=== PATIENT | female | born 1945 | race Caucasian/White ===

== ENCOUNTER 2025-07-01 19:20 | Inpatient (IN) ==
--- NOTE | 2025-07-01 19:36 | Emergency Department Note ---
Impression & Plan Chest pain, CAD (coronary artery disease) ED Provider Note NAME: MATHEW CORDERO AGE: 79 SEX: F : 1945 ARRIVES VIA: Walk-In INFORMANT: Patient ED PROVIDER(S): Antonio Riojas DO CHIEF COMPLAINT: chest pain HPI: Patient is an 79-year-old female with a past medical history of CVA, CAD, hypertension, hyperlipidemia, A-fib, CHF, aortic valve replacement and mitral valve replacement as well as tricuspid valve replacement and CABG who presents to the ER for chest pain which started around 12-1 and lasted for about an hour. Relieved with nitro. Had some shortness of breath with it. No arm or jaw pain. No belly pain. No nausea, vomiting or diarrhea. No dysuria, urgency or frequency. ADDITIONAL HISTORY OBTAINED: Per HPI Chronic Medical/Social Conditions Affecting Care: Per HPI PAST MEDICAL HISTORY:See Below PAST SURGICAL HISTORY:See Below FAMILY HISTORY:See Below SOCIAL HISTORY:See Below HOME MEDICATIONS:See Below ALLERGIES:See Below VITALS:See Below PHYSICAL EXAMINATION: GENERAL: Sitting up in bed, alert, well appearing, well nourished, no distress, non-toxic EYE EXAM: normal conjunctiva. OROPHARYNX: mucous membranes are moist LUNGS: Clear to auscultation. Normal chest wall mechanics HEART: no murmurs, S1 normal and S2 normal ABDOMEN: abdomen soft, non-tender, normo-active bowel sounds, no masses, no rebound or guarding. UPPER EXTREMITIES: upper extremities are grossly normal. LOWER EXTREMITIES: No pitting edema. NEURO EXAM: Normal sensorium, cranial nerves II-XII grossly intact, normal speech, no gross weakness of arms, no gross weakness of legs. MEDICAL DECISION MAKING: Patient is a 79-year-old female who presents ER for the above-stated complaint. IV was established and blood work was obtained. She has extensive past medical history including CVA, CAD, tricuspid, mitral and aortic valve replacements as well as CABG hypertension hyperlipidemia and heart failure for chest pain. Chest pain was relieved with nitro. Labs showed no significant leukocytosis or anemia. BMP with creatinine 1.4. LFTs and troponin was negative. Lipase normal. Chest x-ray with a significantly enlarged heart. Patient was given aspirin. Pain-free while in the ER and discussed case with the hospitalist for further evaluation management treatment due to high risk per heart score. Consults/Care Managements Discussions: Per [facility] Triage Nursing notes reviewed. Limited review of prior medical records performed Vital Signs: reviewed and remarkable for HTN Differential diagnosis: Cardiac ischemia, aortic dissection, pulmonary embolism, pneumothorax, pneumonia, pericarditis, myocarditis, esophageal rupture, GERD, cholecystitis, pancreatitis, musculoskeletal, as well as other pathologies. ER treatment provided: See below Diagnostics interpreted by me include EKG and cardiac monitoring as listed below: -Cardiac Monitoring: An order was placed for continuous cardiac monitoring. The monitor shows a rate of 80 with sinus rhythm. -ECG: Sinus rhythm rate of 79 Normal axis No PVCs QTc 474 -Laboratory studies:Interpreted by me as stated above in MDM and shown below. Imaging studies: Xrays: As interpreted by me: Portable AP upright 1 view of the chest shows large cardiac silhouette CTs show: none Procedures:none Critical Care: None Past Med/Surg History Problem List Chest pain (Acute) CVA (cerebral vascular accident) (Chronic) CAD (coronary artery disease) (Chronic) "hx CABG x3 cath 2011 - ZHANG to LAD and radial to LCX occluded with normal [place] flow to LAD, moderate LCX disease, patent TONYA to RCA stress echo 10/2013 - negative for ischemia" Hypothyroidism (Chronic) Dyslipidemia (Chronic) HTN (hypertension) (Chronic) CKD (chronic kidney disease), stage III (Chronic) Atrial fibrillation (Chronic) "on coumadin" Pulmonary HTN (Chronic) KAROLINE (acute kidney injury) (Acute) Right-sided heart failure (Chronic) CHF exacerbation Impaired glucose tolerance (Chronic) History of hysterectomy (Chronic) Hx of cholecystectomy (Chronic) H/O aortic valve replacement (Chronic) "December 2002 in [place]; redo 09/26/2016 [place] [facility] with bioprosthetic valve" History of mitral valve replacement (Chronic) "December 2002 in [place]; redo 09/26/2016 at [facility] [place] with bioprosthetic valve" H/O tricuspid valve repair (Chronic) "09/26/2016" S/P CABG (coronary artery bypass graft) (Chronic) "CABG x 3 in December 2002 [facility]; CABG x 2 on 09/26/2016 at [facility] [place]" Social History Smoking Status: Never smoker Preferred Language: Estonian Feels Safe at Home: Yes Allergies Allergies Allergy/AdvReac Type Severity Reaction Status Date / Time rofecoxib Allergy Severe EDEMA Verified 07/01/25 20:19 AIRWAY spironolactone Allergy Intermediate Rash Verified 07/01/25 20:19 heparin AdvReac Severe BLEEDING----affected Verified 07/01/25 20:19 platelets estrogens, conjugated AdvReac Intermediate CYSTS-LUMPS Verified 07/01/25 20:19 Home Meds Home Medications Medication Instructions Recorded Confirmed allopurinol 100 mg tablet 100 mg PO QAM 07/01/25 07/01/25 aspirin 81 mg tablet,delayed 162 mg PO DAILY 07/01/25 07/01/25 release atorvastatin 80 mg tablet 80 mg PO QAM 07/01/25 07/01/25 eplerenone 25 mg tablet (Inspra) 25 mg PO DAILY 07/01/25 07/01/25 ezetimibe 10 mg tablet (Zetia) 10 mg PO DAILY 07/01/25 07/01/25 famotidine 20 mg tablet 20 mg PO HS 07/01/25 07/01/25 isosorbide mononitrate 30 mg 30 mg PO QAM 07/01/25 07/01/25 tablet,extended release 24 hr levothyroxine 125 mcg tablet 125 mcg PO DAILYBB 07/01/25 07/01/25 meclizine 12.5 mg tablet 12.5 mg PO TID PRN Dizziness 07/01/25 07/01/25 metoprolol succinate 25 mg 12.5 mg PO DAILY 07/01/25 07/01/25 tablet,extended release 24 hr nitroglycerin 0.4 mg sublingual 0.4 mg sublingual DIRECTED PRN 07/01/25 07/01/25 tablet Chest Pain polyethylene glycol 3350 17 17 g PO DAILY 07/01/25 07/01/25 gram/dose oral powder (Miralax) potassium chloride 10 mEq 10 meq PO DAILY 07/01/25 07/01/25 tablet,extended release potassium chloride 10 mEq 10 meq PO Q OTHER DAY 07/01/25 07/01/25 tablet,extended release torsemide 100 mg tablet 50 mg PO BID 07/01/25 07/01/25 warfarin 5 mg tablet 2.5 - 5 mg PO QPM 07/01/25 07/01/25 Results & Data (ED) Vital Signs Vital Signs - 24 hr 07/01/25 19:23 07/01/25 19:43 07/01/25 19:53 Temperature 36.5 C Temperature Source Oral Pulse Rate 77 78 76 Pulse Rate from SpO2 Sensor Respiratory Rate 16 19 Respiratory Effort / Characteristics Non-Labored Respiratory Depth Normal Blood Pressure 188/75 H Blood Pressure Mean 112 Pulse Oximetry 94 93 Oxygen Delivery Method Room Air Room Air Sepsis Recent Fever Within 48 Hours No Sepsis New/Unexplained Change in Mental Status No Sepsis Action Taken by Nursing No Action Required 07/01/25 19:56 07/01/25 20:00 07/01/25 20:17 Temperature Temperature Source Pulse Rate 65 84 Pulse Rate from SpO2 Sensor 64 80 Respiratory Rate 24 20 Respiratory Effort / Characteristics Respiratory Depth Blood Pressure 135/75 Blood Pressure Mean 102 Pulse Oximetry 94 93 Oxygen Delivery Method Sepsis Recent Fever Within 48 Hours Sepsis New/Unexplained Change in Mental Status Sepsis Action Taken by Nursing 07/01/25 20:30 07/01/25 20:30 07/01/25 20:30 Temperature Temperature Source Pulse Rate Pulse Rate from SpO2 Sensor Respiratory Rate Respiratory Effort / Characteristics Respiratory Depth Blood Pressure 139/67 139/67 139/67 Blood Pressure Mean 100 100 100 Pulse Oximetry Oxygen Delivery Method Sepsis Recent Fever Within 48 Hours Sepsis New/Unexplained Change in Mental Status Sepsis Action Taken by Nursing 07/01/25 20:32 Temperature Temperature Source Pulse Rate 66 Pulse Rate from SpO2 Sensor 66 Respiratory Rate 24 Respiratory Effort / Characteristics Respiratory Depth Blood Pressure Blood Pressure Mean Pulse Oximetry 94 Oxygen Delivery Method Sepsis Recent Fever Within 48 Hours Sepsis New/Unexplained Change in Mental Status Sepsis Action Taken by Nursing Laboratory Data 07/01/25 19:38 07/01/25 19:38 Lab Results 07/01/25 Range/Units 19:38 WBC 5.61 (4.8-10.8) K/ul RBC 4.12 L (4.20-5.40) M/uL Hgb 13.1 (12.0-16.0) g/dl Hct 38.2 (37.0-47.0) % MCV 92.7 (80.0-100.0) fL MCH 31.8 (25.0-34.0) pg MCHC 34.3 (32.0-36.0) g/dL RDW Std Deviation 50.7 H (36.4-46.3) fL RDW Coeff of Teddy 14.8 H (11.5-14.5) % Plt Count 181 (130-400) K/uL MPV 11.0 (9.4-12.4) fL Immature Gran % (Auto) 0.4 % Neut % (Auto) 59.5 % Lymph % (Auto) 23.7 % [place] % (Auto) 11.1 % Eos % (Auto) 3.9 % Baso % (Auto) 1.4 % Neut # (Auto) 3.34 (1.40-6.50) K/uL Lymph # (Auto) 1.33 (1.20-3.40) K/uL [place] # (Auto) 0.62 H (0.11-0.59) K/uL Eos # (Auto) 0.22 (0.00-0.50) K/uL Baso # (Auto) 0.08 (0.00-0.20) K/uL Immature Gran # (Auto) 0.02 (0.01-0.20) K/uL Sodium 139 (136-145) mmol/L Potassium 3.8 (3.5-5.1) mmol/L Chloride 102 (98-107) mmol/L Carbon Dioxide 29 (21-32) mmol/L Anion Gap 8 (3-11) BUN 32 H (6-23) mg/dl Creatinine 1.48 H (0.6-1.2) mg/dl Est Cr Clr Drug Dosing 30.0 ml/min eGFR 35.36 BUN/Creatinine Ratio 21.6 H (10-20) Glucose 128 H (70-99(Fasting)) mg/dl Calcium 8.9 (8.6-10.3) mg/dl Total Bilirubin 1.9 H (0.2-1.0) mg/dl AST 26 (13-39) U/L ALT 20 (7-52) U/L Alkaline Phosphatase 124 H (34-104) U/L Troponin I High Sens 11.1 (0-14) pg/ml Total Protein 7.0 (6.0-8.3) gm/dl Albumin 3.8 (3.4-5.0) gm/dl Globulin 3.2 (2.5-4.0) gm/dl Albumin/Globulin Ratio 1.2 (0.9-2) Lipase 40 (11-82) U/L Administered Medications Discontinued Medications Aspirin (Aspirin Chew 324 Mg) 324 mg PO NOW STA Stop: 07/01/25 19:37 Last Admin: 07/01/25 19:41 Dose: 324 mg Documented By: MADDY Discharge Plan Visit Data Chief Complaint: Chest Pain Stated Complaint: CHEST PAIN ED Provider: Antonio Riojas Discharge Problem: Chest pain, CAD (coronary artery disease) Condition: Fair Forms Stand Alone Forms: [facility] [employer] Prescriptions Prescriptions: No Action atorvastatin 80 mg tablet 80 mg PO QAM isosorbide mononitrate 30 mg tablet extended release 24 hr 30 mg PO QAM meclizine 12.5 mg Tablet 12.5 mg PO TID PRN (Reason: Dizziness) potassium chloride 10 mEq tablet extended release 10 meq PO DAILY potassium chloride 10 mEq tablet extended release 10 meq PO Q OTHER DAY Rx Instructions: TAKE EVERY OTHER DAY AT LUNCH TIME IN ADDITION TO QAM DOSE. allopurinol 100 mg tablet 100 mg PO QAM aspirin 81 mg Tablet,Delayed Release (Dr/Ec) 162 mg PO DAILY famotidine 20 mg Tablet 20 mg PO HS torsemide 100 mg Tablet 50 mg PO BID Rx Instructions: BREAKFAST & LUNCH levothyroxine 125 mcg Tablet 125 mcg PO DAILYBB warfarin 5 mg tablet 2.5 - 5 mg PO QPM Rx Instructions: TAKE DIRECTED nitroglycerin 0.4 mg tablet, sublingual 0.4 mg sublingual DIRECTED PRN (Reason: Chest Pain) metoprolol succinate 25 mg Tablet Extended Release 24 Hr 12.5 mg PO DAILY polyethylene glycol 3350 [Miralax] 17 gram/dose Powder 17 g PO DAILY eplerenone [Inspra] 25 mg Tablet 25 mg PO DAILY ezetimibe [Zetia] 10 mg Tablet 10 mg PO DAILY Referrals Referrals: Jennifer Castle MD [Outside Practitioners] - Discharge Problem: Chest pain Qualifiers: Chest pain type: unspecified Qualified Code(s): R07.9 - Chest pain, unspecified CAD (coronary artery disease) Qualifiers: Coronary Disease-Associated Artery/Lesion type: unspecified vessel or lesion type [place] vs. transplanted heart: [place] heart Associated angina: unspecified whether angina present Qualified Code(s): I25.10 - Atherosclerotic heart disease of [place] coronary artery without angina pectoris
[2025-07-01] MEDS: ASPIRIN CHEW 324 MG PO STA (19:41)
[2025-07-01 19:53] LABS: Hematocrit (blood only) 38.2 % (37.0-47.0); Hemoglobin 13.1 g/dl (12.0-16.0); Immature Granulocytes # (auto) 0.02 K/uL (0.01-0.20); Immature Granulocytes % (auto) 0.4 %; Mean Corpuscular Hemoglobin 31.8 pg (25.0-34.0); Mean Corpuscular Volume 92.7 fL (80.0-100.0); Platelet Count 181 K/uL (130-400); RDW Standard Deviation 50.7 fL (36.4-46.3); Red Blood Count 4.12 M/uL (4.20-5.40); White Blood Count 5.61 K/ul (4.8-10.8)
[2025-07-01 20:13] LABS: Alanine Aminotransferase 20.0 U/L (7-52); Albumin Globulin Ratio 1.2 (0.9-2); Alkaline Phosphatase 124.0 U/L (34-104); Anion Gap 8.0 (3-11); Bilirubin,Total 1.9 mg/dl (0.2-1.0); Blood Urea Nitrogen 32.0 mg/dl (6-23); Calcium 8.9 mg/dl (8.6-10.3); Carbon Dioxide 29.0 mmol/L (21-32); Chloride 102.0 mmol/L (98-107); Creatinine Clr Calc Pharmacy 30.0 ml/min; Globulin 3.2 gm/dl (2.5-4.0); Glucose 128.0 mg/dl (70-99(Fasting)); Lipase 40.0 U/L (11-82); Potassium 3.8 mmol/L (3.5-5.1); Sodium 139.0 mmol/L (136-145); Total Protein 7.0 gm/dl (6.0-8.3)
--- NOTE | 2025-07-01 21:48 | History & Physical Report ---
Date of Service July 01, 2025 Assessment & Plan (1) Chest pain: Plan: Assessment and plan below following discussion of case with ED provider and reviewing patient history/pertinent normal/abnormal diagnostic test results. Chest pain Possibly from uncontrolled hypertension Rule out ACS given history CAD status post CABG and relief with nitroglycerin Patient discomfort with musculoskeletal component given reproducibility on exam. ARF on CKD chronic diastolic heart failure (EF 50 to 54%, TTE 2023), equivocal volume status hx CAD status post CABG/CVA/PVD A-fib/atrial flutter on Coumadin, INR therapeutic hx rheumatic heart disease status post surgery (history bioprosthetic AVR, redo bioprosthetic MVR, tricuspid valve repair) moderate TR pulmonary hypertension hyperlipidemia on ezetimibe DM2 diet-controlled, well-controlled as of hemoglobin A1c of 6.8 from last year hypothyroidism, outpatient TSH elevated at 4.6 from October 2024 OBS Admit to PCU Low-dose amlodipine if home beta-andreas cannot be titrated up due to bradycardia Follow troponin Cardiology consult re: chest pain Baseline UA, monitor creatinine response to gentle IV hydration Hold home diuretic until creatinine back to baseline ISS BG goal 110-140, carb count coverage, update hemoglobin A1c Update TSH given episodic bradycardia DVT prophylaxis. Coumadin INR goal between 2 and 3 if no intervention from cardiology standpoint Full code Patient requesting updates from providers. Mr. Elie Vann, contact numbers [phone]. Text document was generated using [employer] voice recognition software. It may contain grammatical or spelling errors. Kindly contact undersigned for clarification of any documentation item in question. History of Present Illness Chief Complaint: Chest pain Primary Care Provider: Leigh Simmons DO History obtained from patient, family, and records. Medical history significant for chronic diastolic heart failure (EF 50 to 54%, TTE 2024), CAD status post CABG, A-fib/atrial flutter on Coumadin, rheumatic heart disease (history bioprosthetic AVR, redo bioprosthetic MVR, tricuspid valve repair), moderate TR, pulmonary hypertension, hyperlipidemia, CVA, PVD, DM2 diet-controlled, hypothyroidism, CRI (baseline creatinine 1.2-1.3), GERD, Gilbert syndrome as per records. Last confinement 2015 for decompensated heart failure. Patient seen at [facility] cardiology office last month for follow-up visit. Intermittent chest discomfort going to the back relieved by nitroglycerin. Hypertension and atypical chest discomfort as per provider note. Stress testing referral offered and declined by patient. Imdur trial recommended. Patient had recurrent substernal pain going to the back today associated with shortness of breath, diaphoresis. No cough symptoms. Different from reflux. Episode more intense than last month. Patient unaware of blood pressure control at home. Patient compliant with home medications. Patient busy with some rearranging at home although not doing any heavy lifting as per son. Symptoms improved with nitroglycerin intake at home. Patient denies headache symptoms. Patient denies unusual fluid retention. Patient directed to ER by outpatient cardiology provider. Patient currently comfortable. Highest SBP of 180s documented at the ER. Medical History as above Surgical History : Breast biopsy/breast lesion excision, CABG, cholecystectomy, cataract surgeries, bioprosthetic MVR/AVR, MAURY, tricuspid repair Family History : Heart disease, pancreatic cancer Personal/Social history : Non-smoker, no EtOH intake, homemaker in her younger years Allergies Allergy/AdvReac Type Severity Reaction Status Date / Time rofecoxib Allergy Severe EDEMA Verified 07/01/25 20:19 AIRWAY spironolactone Allergy Intermediate Rash Verified 07/01/25 20:19 heparin AdvReac Severe BLEEDING----affected Verified 07/01/25 20:19 platelets estrogens, conjugated AdvReac Intermediate CYSTS-LUMPS Verified 07/01/25 20:19 Home Medications Medication Instructions Recorded Confirmed Type allopurinol 100 mg tablet 100 mg PO QAM 07/01/25 07/01/25 History aspirin 81 mg tablet,delayed 162 mg PO DAILY 07/01/25 07/01/25 History release atorvastatin 80 mg tablet 80 mg PO QAM 07/01/25 07/01/25 History eplerenone 25 mg tablet (Inspra) 25 mg PO DAILY 07/01/25 07/01/25 History ezetimibe 10 mg tablet (Zetia) 10 mg PO DAILY 07/01/25 07/01/25 History famotidine 20 mg tablet 20 mg PO HS 07/01/25 07/01/25 History isosorbide mononitrate 30 mg 30 mg PO QA 07/01/25 07/01/25 History tablet,extended release 24 hr levothyroxine 125 mcg tablet 125 mcg PO DAILYBB 07/01/25 07/01/25 History meclizine 12.5 mg tablet 12.5 mg PO TID PRN Dizziness 07/01/25 07/01/25 History metoprolol succinate 25 mg 12.5 mg PO DAILY 07/01/25 07/01/25 History tablet,extended release 24 hr nitroglycerin 0.4 mg sublingual 0.4 mg sublingual DIRECTED PRN 07/01/25 07/01/25 History tablet Chest Pain polyethylene glycol 3350 17 17 g PO DAILY 07/01/25 07/01/25 History gram/dose oral powder (Miralax) potassium chloride 10 mEq 10 meq PO DAILY 07/01/25 07/01/25 History tablet,extended release potassium chloride 10 mEq 10 meq PO Q OTHER DAY 07/01/25 07/01/25 History tablet,extended release torsemide 100 mg tablet 50 mg PO BID 07/01/25 07/01/25 History warfarin 5 mg tablet 2.5 - 5 mg PO QPM 07/01/25 07/01/25 History Past Med/Surg History Problem List Chest pain (Acute) CVA (cerebral vascular accident) (Chronic) CAD (coronary artery disease) (Chronic) "hx CABG x3 cath 2011 - ZHANG to LAD and radial to LCX occluded with normal [place] flow to LAD, moderate LCX disease, patent TONYA to RCA stress echo 10/2013 - negative for ischemia" Hypothyroidism (Chronic) Dyslipidemia (Chronic) HTN (hypertension) (Chronic) CKD (chronic kidney disease), stage III (Chronic) Atrial fibrillation (Chronic) "on coumadin" Pulmonary HTN (Chronic) KAROLINE (acute kidney injury) (Acute) Right-sided heart failure (Chronic) CHF exacerbation Impaired glucose tolerance (Chronic) History of hysterectomy (Chronic) Hx of cholecystectomy (Chronic) H/O aortic valve replacement (Chronic) "December 2002 in [place]; redo 09/26/2016 at [facility] [place] with bioprosthetic valve" History of mitral valve replacement (Chronic) "December 2002 in [place]; redo 09/26/2016 at [facility] [place] with bioprosthetic valve" H/O tricuspid valve repair (Chronic) "09/26/2016" S/P CABG (coronary artery bypass graft) (Chronic) "CABG x 3 in December 2002 [facility]; CABG x 2 on 09/26/2016 at [facility] [place]" Social History Smoking Status: Never smoker Hx Alcohol Use: No Hx Substance Use: No Preferred Language: Iranian Communication Ability: Effective Volcanology Teacher Required: No Beliefs That Will Affect Care: None Current Living Situation: Spouse Other Information That Helps Us Care for You: No Feels Safe at Home: Yes Safety Concerns: Feels Safe At This Time Assistive Devices: Denture - Upper and Glasses Review of Systems Review of Systems: As per HPI, all other systems reviewed and negative Physical Exam Physical Exam: GENERAL: Comfortable, pleasant, no respiratory distress SKIN: Normal color, warm HEENT: [place] palpebral conjunctivae, no ptosis, dry buccal mucosa NECK : Supple, no tenderness CHEST : Healed sternal scar, CTA, anterior chest wall tenderness HEART : RRR, systolic murmur ABDOMEN: Some distention, nontender EXTREMITIES : Minimal LE swelling without tenderness, palpable pulses, no other conspicuous deformities noted NEUROLOGIC : Coherent, no facial asymmetry, no other gross focality Results & Data Results & Data Vital Signs (Past 12 Hours) Vital Signs Temp Pulse Resp BP Pulse Ox O2 Del Method 07/01/25 20:32 66 24 94 07/01/25 20:30 139/67 07/01/25 20:30 139/67 07/01/25 20:30 139/67 07/01/25 20:17 84 20 93 07/01/25 20:00 135/75 07/01/25 19:56 65 24 94 07/01/25 19:53 76 07/01/25 19:43 78 19 93 Room Air 07/01/25 19:23 36.5 C 77 16 188/75 H 94 Room Air Laboratory Results Laboratory Results WBC 5.61 K/ul (4.8-10.8) 07/01/25 19:38 RBC 4.12 M/uL (4.20-5.40) L 07/01/25 19:38 Hgb 13.1 g/dl (12.0-16.0) 07/01/25 19:38 Hct 38.2 % (37.0-47.0) 07/01/25 19:38 MCV 92.7 fL (80.0-100.0) 07/01/25 19:38 MCH 31.8 pg (25.0-34.0) 07/01/25 19:38 MCHC 34.3 g/dL (32.0-36.0) 07/01/25 19:38 RDW Std Deviation 50.7 fL (36.4-46.3) H 07/01/25 19:38 RDW Coeff of Teddy 14.8 % (11.5-14.5) H 07/01/25 19:38 Plt Count 181 K/uL (130-400) 07/01/25 19:38 MPV 11.0 fL (9.4-12.4) 07/01/25 19:38 Immature Gran % (Auto) 0.4 % 07/01/25 19:38 Neut % (Auto) 59.5 % 07/01/25 19:38 Lymph % (Auto) 23.7 % 07/01/25 19:38 [place] % (Auto) 11.1 % 07/01/25 19:38 Eos % (Auto) 3.9 % 07/01/25 19:38 Baso % (Auto) 1.4 % 07/01/25 19:38 Neut # (Auto) 3.34 K/uL (1.40-6.50) 07/01/25 19:38 Lymph # (Auto) 1.33 K/uL (1.20-3.40) 07/01/25 19:38 [place] # (Auto) 0.62 K/uL (0.11-0.59) H 07/01/25 19:38 Eos # (Auto) 0.22 K/uL (0.00-0.50) 07/01/25 19:38 Baso # (Auto) 0.08 K/uL (0.00-0.20) 07/01/25 19:38 Immature Gran # (Auto) 0.02 K/uL (0.01-0.20) 07/01/25 19:38 Sodium 139 mmol/L (136-145) 07/01/25 19:38 Potassium 3.8 mmol/L (3.5-5.1) 07/01/25 19:38 Chloride 102 mmol/L (98-107) 07/01/25 19:38 Carbon Dioxide 29 mmol/L (21-32) 07/01/25 19:38 Anion Gap 8 (3-11) 07/01/25 19:38 BUN 32 mg/dl (6-23) H 07/01/25 19:38 Creatinine 1.48 mg/dl (0.6-1.2) H 07/01/25 19:38 Est Cr Clr Drug Dosing 30.0 ml/min 07/01/25 19:38 eGFR 35.36 07/01/25 19:38 BUN/Creatinine Ratio 21.6 (10-20) H 07/01/25 19:38 Glucose 128 mg/dl (70-99(Fasting)) H 07/01/25 19:38 Calcium 8.9 mg/dl (8.6-10.3) 07/01/25 19:38 Total Bilirubin 1.9 mg/dl (0.2-1.0) H 07/01/25 19:38 AST 26 U/L (13-39) 07/01/25 19:38 ALT 20 U/L (7-52) 07/01/25 19:38 Alkaline Phosphatase 124 U/L (34-104) H 07/01/25 19:38 Troponin I High Sens 11.1 pg/ml (0-14) 07/01/25 19:38 Total Protein 7.0 gm/dl (6.0-8.3) 07/01/25 19:38 Albumin 3.8 gm/dl (3.4-5.0) 07/01/25 19:38 Globulin 3.2 gm/dl (2.5-4.0) 07/01/25 19:38 Albumin/Globulin Ratio 1.2 (0.9-2) 07/01/25 19:38 Lipase 40 U/L (11-82) 07/01/25 19:38 Diagnostic Findings Chest x-ray as per my interpretation cardiomegaly, minimal congestion EKG as per my interpretation : Rate 70, NSR, normal axis, inferior and septal infarcts, T wave abnormalities lateral leads, PVCs multiple artifacts (1) Chest pain Chest pain type: unspecified Qualified Code(s): R07.9 - Chest pain, unspecified
[2025-07-01 21:54] LABS: Magnesium 2.3 mg/dl (1.7-2.4)
[2025-07-01] MEDS ORDERED: HYDROmorphone INJ 0.5 MG/0.5 ML SYR IV PRN (22:27)
[2025-07-01] MEDS: NITROGLYCERIN SL 0.4 MG/TAB TAB SL PRN (22:41)
--- NOTE | 2025-07-01 23:03 | XRay Report ---
Exam(s): XR CXR 1 VIEW EXAM: XR Chest, 1 View CLINICAL HISTORY: Chest pain, nonspecific. TECHNIQUE: Frontal view of the chest. COMPARISON: 10/14/2016. FINDINGS: Status post sternotomy. Heart is enlarged. Mild CHF. No focal infiltrate. No pleural effusion or pneumothorax. Bones are unchanged. IMPRESSION: Cardiomegaly. Mild CHF. Electronically signed by: Tod Tolentino M.D. 07/01/25 23:02 PM
[2025-07-01] MEDS: METOPROLOL TARTRATE 1 MG/ML VIAL IV STA (23:19)
[2025-07-02] MEDS ORDERED: GLUCAGON FOR INJ 1 MG VIAL SQ PRN (00:16)
[2025-07-02] MEDS ORDERED: CARBOHYDRATES FOR HYPOGLYCEMIA PO PRN (00:16)
[2025-07-02] MEDS ORDERED: DEXTROSE 50% 50 ML SYRINGE IV PRN (00:16)
[2025-07-02] MEDS ORDERED: GLUCOSE 10 TAB/TUBE PO PRN (00:16)
[2025-07-02] MEDS ORDERED: GLUCOSE 40% GEL 15 GM TUBE PO PRN (00:16)
[2025-07-02] MEDS: INSULIN ASPART PER UNIT CHARGE SC SCH (01:32)
[2025-07-02] MEDS: ALBUMIN 25% 12.5 GM/50 ML VIAL IV ONE (04:00)
[2025-07-02] MEDS: LEVOTHYROXINE SODIUM 125 MCG TABLET PO SCH (06:32)
[2025-07-02 07:48] LABS: Hematocrit (blood only) 35.8 % (37.0-47.0); Hemoglobin 12.0 g/dl (12.0-16.0); Immature Granulocytes # (auto) 0.02 K/uL (0.01-0.20); Immature Granulocytes % (auto) 0.4 %; Mean Corpuscular Hemoglobin 31.5 pg (25.0-34.0); Mean Corpuscular Volume 94.0 fL (80.0-100.0); Platelet Count 168 K/uL (130-400); RDW Standard Deviation 51.6 fL (36.4-46.3); Red Blood Count 3.81 M/uL (4.20-5.40); White Blood Count 5.51 K/ul (4.8-10.8)
[2025-07-02 07:59] LABS: Hemoglobin A1C 6.5 % (4.5-5.6)
[2025-07-02 07:59] LABS: Appearance Urine Clear (Clear); Bacteria Urine Automated None Seen (None Seen); Cast Urine Automated 0-2 /lpf (0-2); Epithelial Cell Urine Auto 0-2 /hpf (0-2); Glucose Urine UA Negative (Negative); RBC Urine Automated 0-2 /hpf (0-2); WBC Urine Automated 0-5 /hpf (0-5)
[2025-07-02 08:03] LABS: Anion Gap 6.0 (3-11); Blood Urea Nitrogen 30.0 mg/dl (6-23); Calcium 8.8 mg/dl (8.6-10.3); Carbon Dioxide 30.0 mmol/L (21-32); Chloride 106.0 mmol/L (98-107); Cholesterol 87.0 mg/dl (0-200); Creatinine Clr Calc Pharmacy 37.4 ml/min; Glucose 96.0 mg/dl (70-99(Fasting)); HDL Cholesterol 37.0 mg/dl; Potassium 3.5 mmol/L (3.5-5.1); Sodium 142.0 mmol/L (136-145); Triglycerides 65.0 mg/dl (0-150)
[2025-07-02 08:16] LABS: INR 2.2 (0.9-1.1); Prothrombin Time 21.9 Seconds (9.0-12.0)
[2025-07-02 08:18] LABS: Thyroid Stimulating Hormone 0.59 uIu/ml (0.300-4.500)
[2025-07-02] MEDS: POLYETHYLENE (MIRALAX) 17 GM PACK PO SCH (08:24)
[2025-07-02] MEDS: ASPIRIN 81 MG ECTAB PO SCH (08:24)
[2025-07-02] MEDS: EZETIMIBE 10 MG TAB PO SCH (08:25)
[2025-07-02] MEDS: ISOSORBIDE MONO EXTENDED REL 30 MG TABCR PO SCH (08:25)
[2025-07-02] MEDS: METOPROLOL SUCC 25MG EXT REL TAB PO SCH (08:25)
[2025-07-02] MEDS: ATORVASTATIN 40 MG TAB PO SCH (08:25)
--- NOTE | 2025-07-02 08:28 | Cardiology Consultation ---
Date of Consultation July 02, 2025 Assessment & Plan (1) Chest pain: (2) CAD (coronary artery disease): (3) Atrial fibrillation: (4) H/O aortic valve replacement: (5) History of mitral valve replacement: (6) H/O tricuspid valve repair: Plan Assessment: 79 year old medically complex female admitted for evaluation of intermittent chest pain, reproducible to palpation. given complex cardiac history, cardiology was requested for evaluation/recommenations. Plan: Chest pain CAD A-fib/flutter--chronic History of AVR with redo; MVR with redo and Tricuspid valve repair -Chest pain intermittent and likely multi-factorial. EKG with no acute changes. Troponin negative -Patient appears to have two different chest pains. 1 is reproducible to palpation, suggesting possible musculoskeletal component. the other seems to be aggrevating when eating, ? GI component, reflux, gastritis, esophageal stricture? Ongoing evaluation by primary team, consider GI referral. -EKG with no acute changes in the setting of an active event. BP elevated which is likely precipitated or aggrevated by pain. -Continue Toprol xl, ASA, Atorvastatin and Zetia as per current regimen. -may consider increase of Imdur from 30mg to 60mg daily if BP remain elevated outside of pain events. -Recent echo shows stable LVEF and appropriate function of prior valve replacements/repairs. (echo from Oct 2024--see diagnostics) -Continue to monitor on telemetry overnight. Case has been discussed with Dr. Salcido. Further recommendations regarding plan of care as per his assessment. I spent a total of 50 minutes on the date of service in preparation, delivery, documentation of the care provided to the patient excluding any time spent in the performance of separately billed services. EVIE Fagan [facility] Supervising Physician Co-Signing Physician Notes I have reviewed the advanced practitioner's documentation on the date of service referenced in note, and I agree with, and take responsibility for the plan of care. I spent a total of [30] minutes coordinating, documenting, and providing care for this patient excluding time spent in the performance of separately billed services or time spent by another provider. 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 Chronic A-fib on metoprolol and Coumadin, history of diabetes mellitus CVA chronic kidney disease presents with episodes of chest pain significant stressors at home. sudden onset of chest discomfort radiating into the back and sometimes into the abdomen can occur randomly usually at rest or after eating, nitroglycerin does help occasionally. Today after eating lunch was her most severe pain came on very intense 10 out of 10 was associated with nausea and bringing up mucus. No acute EKG changes at that time troponins have been flat Continue to trend troponins , echocardiogram to assess wall motion and ejection fraction consider CT chest to evaluate for other causes Symptoms worse with after eating will also need to have a GI evaluation Optimize anginal therapy increase Imdur. History of Present Illness Reason for Consultation: Chest pain Requesting Physician: Fuad hospitalist Attending Physician: Silverio Gibson MD History of Present Illness HPI: Patient is a 79 year old female with PMHx as outlined below that presents to the ER with acute complaints of intermittent substernal CP relieved with SL NTG. REview of notes reports that this has a musculoskeletal component given reproducibility on exam Patient follows with Zac Oakley PA-C Cardiology. last OV was 06/14/2025 in which patient endorsed 3lb weight gain and bendopnea. Patient has significant home stressors as both of her adult children and spouse are having significant health issues. She had endorsed atypical chest discomfort, hypertension. Was offered a stress test which she declined. She was started on Imdur 30mg PO QD at time of visit. Cardiac Problem list: 1. 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 s/p repeat aortic valve replacement with 21 mm Epic bioprosthetic valve, redo mitral valve replacement 31 mm Epic bioprosthetic valve, and tricuspid valve repair with 30 mm ring as well as repeat coronary bypass grafting 09/26/16. 3. CAD s/p CABG in 2003 with redo in 2016 (2002--ZHANG to LAD, Radial graft to circumflex and free TONYA to RCA) (SVG aorta to TONYA graft with a sequential graft to an RV branch) 4. Chronic A-fib/flutter-On metoprolol succinate and chronic warfarin therapy INR goal is 2.0-3.0 5. Abnormal LFTs 6. GERD 7. Gilbert's syndrome 8. HTN 9. Dyslipidemia 10. CVA 2002 11. DM Type II 12. CKD 13. Two tiny cystic lesions in the pancreatic tail measuring up to 5mm--follows with GI--planned repeat MRCP december 2026 Initial EKG accelerated Junctional rhythm, prior anterior infarct, ST depression in lateral leads. Repeat EKG today shows A-fib with PVC vs aberrantly conducted complexes. QTC 509ms Rate 65bpm Chest xray: suggest mild CHF High sensitivity troponin negative x3 Upon seeing patient today, she is resting comfortably in bed visiting with family eating lunch. Demonstrates reproducible low sternal-epigastric discomfort to palpation. Also endorses back pain. Review of telemetry shows A-fib rates 50-60's. Shortly after my visit, patient reporting chest pain while eating. VS remained stable, EKG obtained with no acute changes. No acute events on telemetry. She was given one SL NTG with no effect. Started on IV PPI, pepcid and an antacid. Allergies Allergy/AdvReac Type Severity Reaction Status Date / Time rofecoxib Allergy Severe EDEMA Verified 07/01/25 20:19 AIRWAY spironolactone Allergy Intermediate Rash Verified 07/01/25 20:19 heparin AdvReac Severe BLEEDING----affected Verified 07/01/25 20:19 platelets estrogens, conjugated AdvReac Intermediate CYSTS-LUMPS Verified 07/01/25 20:19 Home Medications Medication Instructions Recorded Confirmed Type allopurinol 100 mg tablet 100 mg PO QAM 07/01/25 07/01/25 History aspirin 81 mg tablet,delayed 162 mg PO DAILY 07/01/25 07/01/25 History release atorvastatin 80 mg tablet 80 mg PO QAM 07/01/25 07/01/25 History eplerenone 25 mg tablet (Inspra) 25 mg PO DAILY 07/01/25 07/01/25 History ezetimibe 10 mg tablet (Zetia) 10 mg PO DAILY 07/01/25 07/01/25 History famotidine 20 mg tablet 20 mg PO HS 07/01/25 07/01/25 History isosorbide mononitrate 30 mg 30 mg PO QAM 07/01/25 07/01/25 History tablet,extended release 24 hr levothyroxine 125 mcg tablet 125 mcg PO DAILYBB 07/01/25 07/01/25 History meclizine 12.5 mg tablet 12.5 mg PO TID PRN Dizziness 07/01/25 07/01/25 History metoprolol succinate 25 mg 12.5 mg PO DAILY 07/01/25 07/01/25 History tablet,extended release 24 hr nitroglycerin 0.4 mg sublingual 0.4 mg sublingual DIRECTED PRN 07/01/25 07/01/25 History tablet Chest Pain polyethylene glycol 3350 17 17 g PO DAILY 07/01/25 07/01/25 History gram/dose oral powder (Miralax) potassium chloride 10 mEq 10 meq PO DAILY 07/01/25 07/01/25 History tablet,extended release potassium chloride 10 mEq 10 meq PO Q OTHER DAY 07/01/25 07/01/25 History tablet,extended release torsemide 100 mg tablet 50 mg PO BID 07/01/25 07/01/25 History warfarin 5 mg tablet 2.5 - 5 mg PO QPM 07/01/25 07/01/25 History Patient History Social History Smoking Status: Never smoker Hx Alcohol Use: No Hx Substance Use: No Preferred Language: Yoruba Communication Ability: Effective Electrical Tech Required: No Beliefs That Will Affect Care: None Current Living Situation: Spouse Other Information That Helps Us Care for You: No Feels Safe at Home: Yes Safety Concerns: Feels Safe At This Time Assistive Devices: Denture - Upper and Glasses Review of Systems Review of Systems: All systems reviewed & are unremarkable except as noted in HPI & below Physical Exam Constitutional: + thin and + frail appearing; no acute d istress and not ill appearing Neck: normal visual inspection and trachea midline Respiratory: normal respiratory effort, lungs clear to auscultation Cardiovascular: Rate/Rhythm: regular rate and + irregularly irregular Heart Sounds: normal S1, normal S2 and + murmur (+1/6 systolic ) Vessels: dorsalis pedis pulses present; no JVD Extremities: no edema Skin: no rashes, warm and dry Psychiatric: A+Ox3, euthymic affect Results & Data Vital Signs (Past 12 Hours) Vital Signs Temp Pulse Pulse Resp BP BP Pulse Ox 07/02/25 07:32 36.8 C 60 16 151/61 H 93 07/02/25 04:34 62 07/02/25 02:35 36.8 C 53 L 16 168/68 H 94 07/02/25 00:00 36.6 C 60 20 171/74 H 92 07/01/25 23:54 68 18 150/72 H 94 07/01/25 23:19 70 142/83 H 07/01/25 22:41 36.6 C 77 20 188/98 H 93 07/01/25 22:00 186/96 H 07/01/25 22:00 186/96 H 07/01/25 22:00 68 18 95 07/01/25 21:57 69 22 94 07/01/25 21:30 171/95 H 07/01/25 21:30 67 16 95 07/01/25 21:24 65 25 H 95 07/01/25 21:18 65 17 95 07/01/25 20:51 63 16 07/01/25 20:32 66 24 94 07/01/25 20:30 139/67 07/01/25 20:30 139/67 07/01/25 20:30 139/67 O2 Del Method 07/02/25 07:32 Room Air 07/02/25 04:34 07/02/25 02:35 Room Air 07/02/25 00:00 Room Air 07/01/25 23:54 Room Air 07/01/25 23:19 07/01/25 22:41 Room Air 07/01/25 22:00 07/01/25 22:00 07/01/25 22:00 07/01/25 21:57 07/01/25 21:30 07/01/25 21:30 07/01/25 21:24 07/01/25 21:18 07/01/25 20:51 07/01/25 20:32 07/01/25 20:30 07/01/25 20:30 07/01/25 20:30 Laboratory Results Cardiac Enzymes 07/01/25 07/01/25 07/02/25 Range/Units 19:38 23:06 07:15 AST 26 (13-39) U/L Troponin I High Sens 11.1 10.3 13.6 (0-14) pg/ml Coagulation 07/02/25 Range/Units 07:15 PT 21.9 H (9.0-12.0) Seconds Lipids 07/02/25 Range/Units 07:15 Triglycerides 65 (0-150) mg/dl Cholesterol 87 (0-200) mg/dl HDL Cholesterol 37 mg/dl Cholesterol/HDL Ratio 2.4 (0-5) CBC 07/01/25 07/02/25 Range/Units 19:38 07:15 WBC 5.61 5.51 (4.8-10.8) K/ul RBC 4.12 L 3.81 L (4.20-5.40) M/uL Hgb 13.1 12.0 (12.0-16.0) g/dl Hct 38.2 35.8 L (37.0-47.0) % Plt Count 181 168 (130-400) K/uL Neut # (Auto) 3.34 3.21 (1.40-6.50) K/uL Lymph # (Auto) 1.33 1.27 (1.20-3.40) K/uL [place] # (Auto) 0.62 H 0.65 H (0.11-0.59) K/uL Eos # (Auto) 0.22 0.28 (0.00-0.50) K/uL Baso # (Auto) 0.08 0.08 (0.00-0.20) K/uL Comprehensive Metabolic Panel 07/01/25 07/02/25 Range/Units 19:38 07:15 Sodium 139 142 (136-145) mmol/L Potassium 3.8 3.5 (3.5-5.1) mmol/L Chloride 102 106 (98-107) mmol/L Carbon Dioxide 29 30 (21-32) mmol/L BUN 32 H 30 H (6-23) mg/dl Creatinine 1.48 H 1.18 D (0.6-1.2) mg/dl Glucose 128 H 96 (70-99(Fasting)) mg/dl Calcium 8.9 8.8 (8.6-10.3) mg/dl AST 26 (13-39) U/L ALT 20 (7-52) U/L Alkaline Phosphatase 124 H (34-104) U/L Total Protein 7.0 (6.0-8.3) gm/dl Albumin 3.8 (3.4-5.0) gm/dl Intake and Output 07/01/25 07/02/25 07/02/25 22:59 06:59 14:59 Intake Total 150 / 150 Balance 150 / 150 Intake: IV 50 / 50 Albumin 25% 12.5 gm In 50 ml @ 50 / 50 50 mls/hr IV ONE ONE Rx#: [id number] Oral 100 / 100 Other: Weight 80.6 kg 80 kg Weight Measurement Method Chair Scale Built in [facility] Diagnostic Findings Data: November 2022 Zio Monitor: Atrial Flutter occurred continuously (100% burden), ranging from 38-125 bpm (avg of 68 bpm). Isolated VEs were rare (<1.0%, 7324), VE Couplets were rare (<1.0%, 738), and VE Triplets were rare (<1.0%, 1). Ventricular Bigeminy and Trigeminy were present. 12 patient triggered events and 12 diary events were submitted for review. Patient triggered events correlated with atrial flutter ranging from 49 beats per minute to 106 beats p er minute. The slowest heart rate was observed on 11/28/2022 at 6:41 a.m. with average ventricular rate of 51 beats per minute that time. December 19, 2022 TTE Interpretation Summary (as per Dr. Yarbrough): The qualitative LV ejection fraction is 55-59% (normal). Severe biatrial enlargement. There is an aortic valve bioprosthetic present. The aortic valve prosthesis systolic gradients are normal for this type prosthesis. Significant aortic valve prosthesis regurgitation is absent. There is a mitral valve bioprosthesis present. Significant mitral valve prosthesis stenosis is absent. Significant mitral valve prosthesis regurgitation is absent. Mild tricuspid regurgitation is present. The estimated pulmonary artery systolic pressure is 41mm Hg. Compared to last available study changes are noted as follows: Estimated systolic pulmonary pressure has mildly increased June 2024 Zio: Atrial Flutter occurred continuously (100% burden), ranging from 37-84 bpm (avg of 61 bpm). Isolated VEs were rare (<1.0%), VE Couplets were rare (<1.0%), and no VE Triplets were present. Ventricular Bigeminy was present. November 01, 2024 TTE Interpretation Summary (as per Dr. Suazo): There was atrial fibrillation during the examination. The left ventricular cavity size is normal. The LV wall thickness is borderline increased (concentric). There is mild dyssynergy of the septal contraction pattern with otherwise normal wall motion. The qualitative LV ejection fraction is 50-54% (normal). The left atrium is severely enlarged. The right atrium is severely enlarged. There is an aortic valve bioprosthetic present. The aortic valve prosthesis systolic gradients are normal for this type prosthesis. Significant aortic valve prosthesis regurgitation is absent. There is a mitral valve bioprosthesis present. Significant mitral valve prosthesis stenosis is absent. Significant mitral valve prosthesis regurgitation is absent. There is evidence of previous tricuspid valve annuloplasty. Moderate tricuspid regurgitation is present. The estimated pulmonary artery systolic pressure is 40-45mm Hg. Compared to prior study of December 19, 2022, there is no significant change. PG Care Time/CCT Total # of Minutes Spent Total Time Spent with Patient: Total time spent is greater than 50% in coordination of care (as documented) at patient's floor/unit and/or counseling patient: [place] [address] IN/OBS CONSULT LVL 5,80M Patient Type New Diagnoses Chest pain R07.9 Chest pain type: unspecified CAD (coronary artery disease) I25.10 Associated angina: unspecified whether angina present Coronary Disease-Associated Artery/Lesion type: unspecified vessel or lesion type [place] vs. transplanted heart: [place] heart Atrial fibrillation I48.91 H/O aortic valve replacement Z95.2 History of mitral valve replacement Z95.2 H/O tricuspid valve repair Z98.890 Time Spent (min) 80 (1) Chest pain Chest pain type: unspecified Qualified Code(s): R07.9 - Chest pain, unspecified (2) CAD (coronary artery disease) Associated angina: unspecified whether angina present Coronary Disease- Associated Artery/Lesion type: unspecified vessel or lesion type [place] vs. transplanted heart: [place] heart Qualified Code(s): I25.10 - Atherosclerotic heart disease of [place] coronary artery without angina pectoris
--- NOTE | 2025-07-02 09:49 | Hospitalist Progress Note ---
Date of Service July 02, 2025 Assessment & Plan (1) Chest pain: Plan: Chest pain Possibly from uncontrolled hypertension Rule out ACS given history CAD status post CABG and relief with nitroglycerin per admitting provider - discomfort with musculoskeletal component given reproducibility on exam. ARF on CKD - resolved chronic diastolic heart failure (EF 50 to 54%, TTE 2023) hx CAD status post CABG/CVA/PVD A-fib/atrial flutter on Coumadin, INR therapeutic hx rheumatic heart disease status post surgery (history bioprosthetic AVR, redo bioprosthetic MVR, tricuspid valve repair) moderate TR pulmonary hypertension hyperlipidemia on ezetimibe Admitted to PCU Creatinine now improved at 1.18 Home diuretic held on admission -- re-check w/ cardiology when ok to resume Cardiology consulted, recommendations pending Low-dose amlodipine if home beta-andreas cannot be titrated up due to bradycardia Follow troponin Cardiology consult re: chest pain DM2 diet-controlled, well-controlled as of hemoglobin A1c of 6.8 from last year, ISS BG goal 110-140, carb count coverage, current hemoglobin A1c 6.5% Hypothyroidism, outpatient TSH elevated at 4.6 from October 2024 , current 0.59 DVT prophylaxis. Coumadin INR goal between 2 and 3 if no intervention from cardiology standpoint Full code Patient - Mr. Elie Vann, contact numbers [phone]. Admission and Anticipated Discharge Date Admission Date: July 01, 2025 Subjective Pt seen in follow up of chest pain Pt says earlier this AM she was having nausea, no seems improved, currently no chest pain No shortness of breath, fevers, chills, she has some epigastric discomfort Pt is awake, alert, oriented, able to provide history. Family also present at the bedside. Review of Systems Review of Systems: All systems reviewed & are unremarkable except as noted in Subjective Physical Exam Physical Exam: GENERAL: Comfortable, pleasant, no respiratory distress SKIN: Normal color, warm HEENT: NC/AT, EOMI NECK : Supple CHEST : Healed sternal scar, CTA, no wheezing HEART : RRR, systolic murmur ABDOMEN: soft, + mild epigastric tenderness EXTREMITIES : + LE edema b/l, moves extremities NEUROLOGIC : Coherent, no facial asymmetry, no other gross focality Results & Data Results & Data Vital Signs (Past 12 Hours) Vital Signs Temp Pulse Pulse Resp BP BP Pulse Ox 07/02/25 07:32 36.8 C 60 16 151/61 H 93 07/02/25 04:34 62 07/02/25 02:35 36.8 C 53 L 16 168/68 H 94 07/02/25 00:00 36.6 C 60 20 171/74 H 92 07/01/25 23:54 68 18 150/72 H 94 07/01/25 23:19 70 142/83 H 07/01/25 22:41 36.6 C 77 20 188/98 H 93 07/01/25 22:00 186/96 H 07/01/25 22:00 186/96 H 07/01/25 22:00 68 18 95 07/01/25 21:57 69 22 94 O2 Del Method 07/02/25 07:32 Room Air 07/02/25 04:34 07/02/25 02:35 Room Air 07/02/25 00:00 Room Air 07/01/25 23:54 Room Air 07/01/25 23:19 07/01/25 22:41 Room Air 07/01/25 22:00 07/01/25 22:00 07/01/25 22:00 07/01/25 21:57 Laboratory Results 07/02/25 07/02/25 07/02/25 Range/Units Unknown 07:19 07:15 WBC 5.51 (4.8-10.8) K/ul RBC 3.81 L (4.20-5.40) M/uL Hgb 12.0 (12.0-16.0) g/dl Hct 35.8 L (37.0-47.0) % MCV 94.0 (80.0-100.0) fL MCH 31.5 (25.0-34.0) pg MCHC 33.5 (32.0-36.0) g/dL RDW Std Deviation 51.6 H (36.4-46.3) fL RDW Coeff of Teddy 14.8 H (11.5-14.5) % Plt Count 168 (130-400) K/uL MPV 11.3 (9.4-12.4) fL Immature Gran % (Auto) 0.4 % Neut % (Auto) 58.2 % Lymph % (Auto) 23.0 % [place] % (Auto) 11.8 % Eos % (Auto) 5.1 % Baso % (Auto) 1.5 % Neut # (Auto) 3.21 (1.40-6.50) K/uL Lymph # (Auto) 1.27 (1.20-3.40) K/uL [place] # (Auto) 0.65 H (0.11-0.59) K/uL Eos # (Auto) 0.28 (0.00-0.50) K/uL Baso # (Auto) 0.08 (0.00-0.20) K/uL Immature Gran # (Auto) 0.02 (0.01-0.20) K/uL PT 21.9 H (9.0-12.0) Seconds INR 2.2 H (0.9-1.1) Sodium 142 (136-145) mmol/L Potassium 3.5 (3.5-5.1) mmol/L Chloride 106 (98-107) mmol/L Carbon Dioxide 30 (21-32) mmol/L Anion Gap 6 (3-11) BUN 30 H (6-23) mg/dl Creatinine 1.18 D (0.6-1.2) mg/dl Est Cr Clr Drug Dosing 37.4 ml/min eGFR 46.40 BUN/Creatinine Ratio 25.4 H (10-20) Glucose 96 (70-99(Fasting)) mg/dl POC Glucose 101 H (70-99) mg/dl Estimat Average Glucose 140 mg/dl Hemoglobin A1c 6.5 H (4.5-5.6) % Calcium 8.8 (8.6-10.3) mg/dl Magnesium (1.7-2.4) mg/dl Total Bilirubin (0.2-1.0) mg/dl AST (13-39) U/L ALT (7-52) U/L Alkaline Phosphatase (34-104) U/L Troponin I High Sens 13.6 (0-14) pg/ml Total Protein (6.0-8.3) gm/dl Albumin (3.4-5.0) gm/dl Globulin (2.5-4.0) gm/dl Albumin/Globulin Ratio (0.9-2) Triglycerides 65 (0-150) mg/dl Cholesterol 87 (0-200) mg/dl LDL Cholesterol, Calc 37 mg/dl VLDL Cholesterol, Calc 13 (0-30) mg/dl HDL Cholesterol 37 mg/dl Cholesterol/HDL Ratio 2.4 (0-5) Lipase (11-82) U/L TSH 0.590 (0.300-4.500) uIu/ml Urine Color Yellow Urine Appearance Clear (Clear) Urine pH 6.0 (4.5-7.5) Ur Specific [place] 1.012 (1.000-1.030) Urine Protein Negative (Negative) Urine Glucose (UA) Negative (Negative) Urine Ketones Negative (Negative) Urine Blood Negative (Negative) Urine Nitrite Negative (Negative) Urine Bilirubin Negative (Negative) Urine Urobilinogen Negative (Negative) Ur Leukocyte Esterase Trace H (Negative) Urine WBC (Auto) 0-5 (0-5) /hpf Urine RBC (Auto) 0-2 (0-2) /hpf U Hyaline Cast (Auto) 0-2 (0-2) /lpf U Epithel Cells (Auto) 0-2 (0-2) /hpf Urine Bacteria (Auto) None Seen (None Seen) Urine Comment 07/02/25 07/01/25 07/01/25 Range/Units 00:23 23:06 19:38 WBC 5.61 (4.8-10.8) K/ul RBC 4.12 L (4.20-5.40) M/uL Hgb 13.1 (12.0-16.0) g/dl Hct 38.2 (37.0-47.0) % MCV 92.7 (80.0-100.0) fL MCH 31.8 (25.0-34.0) pg MCHC 34.3 (32.0-36.0) g/dL RDW Std Deviation 50.7 H (36.4-46.3) fL RDW Coeff of Teddy 14.8 H (11.5-14.5) % Plt Count 181 (130-400) K/uL MPV 11.0 (9.4-12.4) fL Immature Gran % (Auto) 0.4 % Neut % (Auto) 59.5 % Lymph % (Auto) 23.7 % [place] % (Auto) 11.1 % Eos % (Auto) 3.9 % Baso % (Auto) 1.4 % Neut # (Auto) 3.34 (1.40-6.50) K/uL Lymph # (Auto) 1.33 (1.20-3.40) K/uL [place] # (Auto) 0.62 H (0.11-0.59) K/uL Eos # (Auto) 0.22 (0.00-0.50) K/uL Baso # (Auto) 0.08 (0.00-0.20) K/uL Immature Gran # (Auto) 0.02 (0.01-0.20) K/uL PT (9.0-12.0) Seconds INR (0.9-1.1) Sodium 139 (136-145) mmol/L Potassium 3.8 (3.5-5.1) mmol/L Chloride 102 (98-107) mmol/L Carbon Dioxide 29 (21-32) mmol/L Anion Gap 8 (3-11) BUN 32 H (6-23) mg/dl Creatinine 1.48 H (0.6-1.2) mg/dl Est Cr Clr Drug Dosing 30.0 ml/min eGFR 35.36 BUN/Creatinine Ratio 21.6 H (10-20) Glucose 128 H (70-99(Fasting)) mg/dl POC Glucose 114 H (70-99) mg/dl Estimat Average Glucose mg/dl Hemoglobin A1c (4.5-5.6) % Calcium 8.9 (8.6-10.3) mg/dl Magnesium 2.3 (1.7-2.4) mg/dl Total Bilirubin 1.9 H (0.2-1.0) mg/dl AST 26 (13-39) U/L ALT 20 (7-52) U/L Alkaline Phosphatase 124 H (34-104) U/L Troponin I High Sens 10.3 11.1 (0-14) pg/ml Total Protein 7.0 (6.0-8.3) gm/dl Albumin 3.8 (3.4-5.0) gm/dl Globulin 3.2 (2.5-4.0) gm/dl Albumin/Globulin Ratio 1.2 (0.9-2) Triglycerides (0-150) mg/dl Cholesterol (0-200) mg/dl LDL Cholesterol, Calc mg/dl VLDL Cholesterol, Calc (0-30) mg/dl HDL Cholesterol mg/dl Cholesterol/HDL Ratio (0-5) Lipase 40 (11-82) U/L TSH (0.300-4.500) uIu/ml Urine Color Urine Appearance (Clear) Urine pH (4.5-7.5) Ur Specific [place] (1.000-1.030) Urine Protein (Negative) Urine Glucose (UA) (Negative) Urine Ketones (Negative) Urine Blood (Negative) Urine Nitrite (Negative) Urine Bilirubin (Negative) Urine Urobilinogen (Negative) Ur Leukocyte Esterase (Negative) Urine WBC (Auto) (0-5) /hpf Urine RBC (Auto) (0-2) /hpf U Hyaline Cast (Auto) (0-2) /lpf U Epithel Cells (Auto) (0-2) /hpf Urine Bacteria (Auto) (None Seen) Urine Comment Medications Administered Current Inpatient Medications Allopurinol (Allopurinol 100 Mg Tab) [facility] Stop: 08/01/25 08:59 Last Admin: 07/02/25 08:24 Dose: 100 mg Amlodipine Besylate (Amlodipine Besylate 5 Mg Tab) 2.5 [facility] Stop: 08/01/25 02:59 Last Admin: 07/02/25 04:00 Dose: 2.5 mg Aspirin (Aspirin 81 Mg Ectab) 162 mg PO DAILY [facility] Stop: 08/01/25 08:59 Last Admin: 07/02/25 08:24 Dose: 162 mg Atorvastatin Calcium (Atorvastatin 40 Mg Tab) 80 mg PO QAM [facility] Stop: 08/01/25 08:59 Last Admin: 07/02/25 08:25 Dose: 80 mg Dextrose (Dextrose 50% 50 Ml Syringe) 25 - 50 ml IV UD PRN; Protocol PRN Reason: Hypoglycemia Protocol Stop: 08/01/25 00:15 Ezetimibe (Ezetimibe 10 Mg Tab) 10 mg PO DAILY [facility] Stop: 08/01/25 08:59 Last Admin: 07/02/25 08:25 Dose: 10 mg Famotidine (Famotidine 20 Mg Tab) 20 mg PO HS [facility] Stop: 08/01/25 20:59 Glucagon (Glucagon For Inj 1 Mg Vial) 1 mg SQ UD PRN; Protocol PRN Reason: Hypoglycemia Protocol Stop: 08/01/25 00:15 Glucose (Glucose 40% Gel 15 Gm Tube) 15 - 30 gm PO UD PRN; Protocol PRN Reason: Hypoglycemia Protocol Stop: 08/01/25 00:15 Glucose (Glucose 10 Tab/Tube) 4 - 8 tab PO UD PRN; Protocol PRN Reason: Hypoglycemia Protocol Stop: 08/01/25 00:15 Hydromorphone HCl (Hydromorphone Inj 0.5 Mg/0.5 Ml Syr) 0.25 mg IV Q4H PRN PRN Reason: Pain Stop: 07/15/25 22:26 Promethazine HCl (Phenergan) 6.25 mg in 50.25 mls @ 201 mls/hr IV Q6H PRN PRN Reason: Nausea And Vomiting Stop: 07/31/25 22:26 Insulin Aspart (Insulin Aspart Per Unit Charge) 0 units SC ACHS [facility] Stop: 08/01/25 00:15 Last Admin: 07/02/25 08:27 Dose: 1 units Isosorbide Mononitrate (Isosorbide [place] Extended Rel 30 Mg Tabcr) 30 mg PO QAM [facility] Stop: 08/01/25 08:59 Last Admin: 07/02/25 08:25 Dose: 30 mg Levothyroxine Sodium (Levothyroxine Sodium 125 Mcg Tablet) 125 mcg PO DAILYBB [facility] Stop: 08/01/25 06:29 Last Admin: 07/02/25 06:32 Dose: 125 mcg Metoprolol Succinate (Metoprolol Succ 25mg Ext Rel Tab) 12.5 mg PO DAILY [facility] Stop: 08/01/25 08:59 Last Admin: 07/02/25 08:25 Dose: 12.5 mg Miscellaneous (Carbohydrates For Hypoglycemia ) 15 - 30 gm PO UD PRN PRN Reason: Hypoglycemia Protocol Stop: 08/01/25 00:15 Nitroglycerin (Nitroglycerin Sl 0.4 Mg/Tab Tab) 0.4 mg SL Q5M PRN PRN Reason: Chest Pain Stop: 07/31/25 22:26 Last Admin: 07/01/25 22:41 Dose: 0.4 mg Oxycodone HCl (Oxycodone Hcl Ir 5 Mg Tab (Immediate Release)) 5 mg PO Q4H PRN PRN Reason: Pain Stop: 07/15/25 22:26 Polyethylene Glycol (Polyethylene (Miralax) 17 Gm Pack) 17 gm PO DAILY [facility] Stop: 08/01/25 08:59 Last Admin: 07/02/25 08:24 Dose: 17 gm (1) Chest pain Chest pain type: unspecified Qualified Code(s): R07.9 - Chest pain, unspecified
[2025-07-02] MEDS: PANTOprazole 40 MG/10 ML SYR IV ONE (12:18)
[2025-07-02] MEDS: FAMOTIDINE 20MG IV PUSH 20 MG/5 ML SYR IV SCH (12:18)
--- NOTE | 2025-07-02 12:48 | Electrocardiogram Report ---
Test Reason : Blood Pressure : */* mmHG Vent. Rate : 79 BPM Atrial Rate : * BPM P-R Int : * ms QRS Dur : 94 ms QT Int : 414 ms P-R-T Axes : * 75 72 degrees QTcB Int : 474 ms Normal sinus rhythm Anterior infarct , age undetermined Abnormal ECG When compared with ECG of 14-Oct-2016 16:26, Normal sinus rhythm now present ST now depressed in Lateral leads T wave inversion no longer evident in Inferior leads Confirmed by Fredi Wayne ([id number]) on 07/02/2025 12:48:12 PM Referred By: REFERRED SELF Confirmed By: Fredi Wayne
[2025-07-02] MEDS: PROMETHAZINE 6.25 MG/50.25 ML BAG IV PRN (12:50)
--- NOTE | 2025-07-02 13:02 | Electrocardiogram Report ---
Test Reason : Blood Pressure : */* mmHG Vent. Rate : 69 BPM Atrial Rate : * BPM P-R Int : * ms QRS Dur : 92 ms QT Int : 442 ms P-R-T Axes : * 79 103 degrees QTcB Int : 473 ms Atrial fibrillation with premature ventricular or aberrantly conducted complexes Anterior infarct (cited on or before 01-Jul-2025) Abnormal ECG When compared with ECG of 01-Jul-2025 19:28, (unconfirmed) Atrial fibrillation are now Present Confirmed by Fredi Wayne ([id number]) on 07/02/2025 1:01:58 PM Referred By: REFERRED SELF Confirmed By: Fredi Wayne
--- NOTE | 2025-07-02 13:02 | Electrocardiogram Report ---
Test Reason : Blood Pressure : */* mmHG Vent. Rate : 65 BPM Atrial Rate : * BPM P-R Int : * ms QRS Dur : 98 ms QT Int : 490 ms P-R-T Axes : * 68 75 degrees QTcB Int : 509 ms Atrial fibrillation with premature ventricular or aberrantly conducted complexes Prolonged QT Abnormal ECG When compared with ECG of 01-Jul-2025 22:39, (unconfirmed) No significant change Confirmed by Fredi Wayne ([id number]) on 07/02/2025 1:02:34 PM Referred By: REFERRED SELF Confirmed By: Fredi Wayne
[2025-07-02] MEDS: POTASSIUM CHLORIDE CRTAB 20 MEQ TABCR PO STA (13:22)
[2025-07-02] MEDS: OPTIRAY 320 125ml IV ONE (18:24)
--- NOTE | 2025-07-02 18:43 | CT Scan Report ---
CT pulmonary angiogram with IV contrast History: Chest pain COMPARISON: None TECHNIQUE: CT angiography of the chest was performed without IV contrast followed by IV contrast, including 3D post processing CTA image reconstruction. Dose reduction techniques were achieved by using automatic exposure control and/or adjustment of mA and/or kV according to patient size and/or use of iterative reconstruction technique. FINDINGS: Diagnostic quality: Adequate There is no evidence for pulmonary embolism. The heart is markedly enlarged. The pulmonary artery is markedly enlarged suggesting pulmonary hypertension. Aortic valve and mitral valve replacements. Heavy coronary calcifications. Tricuspid valve annuloplasty. CABG changes. There is no pericardial effusion. There are no abnormally enlarged hilar or mediastinal lymph nodes. The central tracheobronchial tree is clear. The lungs are clear. There is no pleural effusion. Limited visualized upper abdomen. No destructive osseous changes are seen. IMPRESSION: No evidence for pulmonary embolism. Marked cardiomegaly. Several valve replacements. CABG. Pulmonary artery enlargement suggesting pulmonary hypertension. Electronically signed by Camilo Melton 07-02-2025 6:43 PM
[2025-07-02] MEDS: WARFARIN SOD 5 MG TAB PO ONE (19:04)
[2025-07-02] MEDS ORDERED: FAMOTIDINE 20 MG TAB PO SCH (21:00)
[2025-07-03 06:17] LABS: Hematocrit (blood only) 37.9 % (37.0-47.0); Hemoglobin 12.8 g/dl (12.0-16.0); Mean Corpuscular Hemoglobin 31.9 pg (25.0-34.0); Mean Corpuscular Volume 94.5 fL (80.0-100.0); Platelet Count 166 K/uL (130-400); RDW Standard Deviation 52.4 fL (36.4-46.3); Red Blood Count 4.01 M/uL (4.20-5.40); White Blood Count 6.35 K/ul (4.8-10.8)
[2025-07-03 06:40] LABS: Anion Gap 5.0 (3-11); Blood Urea Nitrogen 26.0 mg/dl (6-23); Calcium 9.1 mg/dl (8.6-10.3); Carbon Dioxide 29.0 mmol/L (21-32); Chloride 109.0 mmol/L (98-107); Creatinine Clr Calc Pharmacy 41.4 ml/min; Glucose 94.0 mg/dl (70-99(Fasting)); Magnesium 2.4 mg/dl (1.7-2.4); Potassium 3.7 mmol/L (3.5-5.1); Sodium 143.0 mmol/L (136-145)
--- NOTE | 2025-07-03 07:43 | Hospitalist Progress Note ---
Date of Service July 03, 2025 Assessment & Plan (1) Chest pain: Plan: Chest pain Possibly from uncontrolled hypertension Rule out ACS given history CAD status post CABG and relief with nitroglycerin per admitting provider - discomfort with musculoskeletal component given reproducibility on exam. Cardiology consulted Low-dose amlodipine started by admitting provider if home beta-andreas cannot be titrated up due to bradycardia Follow troponin Cardiology consult re: chest pain - increased Imdur to [address] chest - No evidence for pulmonary embolism. Marked cardiomegaly. Several valve replacements. CABG. Pulmonary artery enlargement suggesting pulmonary hypertension. ARF on CKD - resolved Creatinine now improved at 1.18 Home diuretic held on admission -- re-check w/ cardiology when ok to resume Epigastric discomfort, nausea started pepcid, and ppi - epigastric discomfort improved nausea resolved chronic diastolic heart failure (EF 50 to 54%, TTE 2023) hx CAD status post CABG/CVA/PVD A-fib/atrial flutter on Coumadin, INR therapeutic hx rheumatic heart disease status post surgery (history bioprosthetic AVR, redo bioprosthetic MVR, tricuspid valve repair) moderate TR pulmonary hypertension hyperlipidemia on ezetimibe DM2 diet-controlled, well-controlled as of hemoglobin A1c of 6.8 from last year, ISS BG goal 110-140, carb count coverage, current hemoglobin A1c 6.5% Hypothyroidism, outpatient TSH elevated at 4.6 from October 2024 , current 0.59 DVT prophylaxis. Coumadin INR goal between 2 and 3 if no intervention from cardiology standpoint Full code Patient - Mr. Elie Vann, contact numbers [phone]. Admission and Anticipated Discharge Date Admission Date: July 01, 2025 Subjective Pt seen in follow up of chest pain Yesterday AM she was having nausea, + epigastric pain. Was started on pepcid, ppi CT chest , echo also ordered Pt seen by cardiology This AM pt denied any chest pain, overall was feeling well. Later, around 10:30 she developed upper back left sided pain and lower abdominal discomfort. Denies chest pain and epigastric pain seems improved now. NO nausea No shortness of breath, fevers, chills Pt is awake, alert, oriented, Family also present at the bedside. Review of Systems Review of Systems: All systems reviewed & are unremarkable except as noted in Subjective Physical Exam Physical Exam: GENERAL: Comfortable, pleasant, no respiratory distress SKIN: Normal color, warm HEENT: NC/AT, EOMI NECK : Supple CHEST : Healed sternal scar, CTA, no wheezing HEART : RRR, systolic murmur ABDOMEN: soft, + mild epigastric tenderness (improved) EXTREMITIES : + LE edema b/l, moves extremities NEUROLOGIC : Coherent, no facial asymmetry, no other gross focality Results & Data Results & Data Vital Signs (Past 12 Hours) Vital Signs Temp Pulse Pulse Resp BP BP Pulse Ox 07/03/25 07:19 64 07/03/25 02:56 36.8 C 65 16 129/62 07/02/25 22:47 36.8 C 71 16 164/74 H 94 07/02/25 22:05 69 O2 Del Method 07/03/25 07:19 07/03/25 02:56 Room Air 07/02/25 22:47 Room Air 07/02/25 22:05 Laboratory Results 07/03/25 07/03/25 07/02/25 Range/Units 07:14 05:34 Unknown WBC 6.35 (4.8-10.8) K/ul RBC 4.01 L (4.20-5.40) M/uL Hgb 12.8 (12.0-16.0) g/dl Hct 37.9 (37.0-47.0) % MCV 94.5 (80.0-100.0) fL MCH 31.9 (25.0-34.0) pg MCHC 33.8 (32.0-36.0) g/dL RDW Std Deviation 52.4 H (36.4-46.3) fL RDW Coeff of Teddy 14.9 H (11.5-14.5) % Plt Count 166 (130-400) K/uL MPV 11.1 (9.4-12.4) fL Immature Gran % (Auto) % Neut % (Auto) % Lymph % (Auto) % [place] % (Auto) % Eos % (Auto) % Baso % (Auto) % Neut # (Auto) (1.40-6.50) K/uL Lymph # (Auto) (1.20-3.40) K/uL [place] # (Auto) (0.11-0.59) K/uL Eos # (Auto) (0.00-0.50) K/uL Baso # (Auto) (0.00-0.20) K/uL Immature Gran # (Auto) (0.01-0.20) K/uL PT (9.0-12.0) Seconds INR (0.9-1.1) Sodium 143 (136-145) mmol/L Potassium 3.7 (3.5-5.1) mmol/L Chloride 109 H (98-107) mmol/L Carbon Dioxide 29 (21-32) mmol/L Anion Gap 5 (3-11) BUN 26 H (6-23) mg/dl Creatinine 1.06 (0.6-1.2) mg/dl Est Cr Clr Drug Dosing 41.4 ml/min eGFR 52.78 BUN/Creatinine Ratio 24.5 H (10-20) Glucose 94 (70-99(Fasting)) mg/dl POC Glucose 95 (70-99) mg/dl Estimat Average Glucose mg/dl Hemoglobin A1c (4.5-5.6) % Calcium 9.1 (8.6-10.3) mg/dl Phosphorus 3.2 (2.5-4.9) mg/dl Magnesium 2.4 (1.7-2.4) mg/dl Troponin I High Sens (0-14) pg/ml Triglycerides (0-150) mg/dl Cholesterol (0-200) mg/dl LDL Cholesterol, Calc mg/dl VLDL Cholesterol, Calc (0-30) mg/dl HDL Cholesterol mg/dl Cholesterol/HDL Ratio (0-5) TSH (0.300-4.500) uIu/ml Urine Color Yellow Urine Appearance Clear (Clear) Urine pH 6.0 (4.5-7.5) Ur Specific [place] 1.012 (1.000-1.030) Urine Protein Negative (Negative) Urine Glucose (UA) Negative (Negative) Urine Ketones Negative (Negative) Urine Blood Negative (Negative) Urine Nitrite Negative (Negative) Urine Bilirubin Negative (Negative) Urine Urobilinogen Negative (Negative) Ur Leukocyte Esterase Trace H (Negative) Urine WBC (Auto) 0-5 (0-5) /hpf Urine RBC (Auto) 0-2 (0-2) /hpf U Hyaline Cast (Auto) 0-2 (0-2) /lpf U Epithel Cells (Auto) 0-2 (0-2) /hpf Urine Bacteria (Auto) None Seen (None Seen) Urine Comment 07/02/25 07/02/25 07/02/25 Range/Units 20:44 16:18 11:17 WBC (4.8-10.8) K/ul RBC (4.20-5.40) M/uL Hgb (12.0-16.0) g/dl Hct (37.0-47.0) % MCV (80.0-100.0) fL MCH (25.0-34.0) pg MCHC (32.0-36.0) g/dL RDW Std Deviation (36.4-46.3) fL RDW Coeff of [place] (11.5-14.5) % Plt Count (130-400) K/uL MPV (9.4-12.4) fL Immature Gran % (Auto) % Neut % (Auto) % Lymph % (Auto) % [place] % (Auto) % Eos % (Auto) % Baso % (Auto) % Neut # (Auto) (1.40-6.50) K/uL Lymph # (Auto) (1.20-3.40) K/uL [place] # (Auto) (0.11-0.59) K/uL Eos # (Auto) (0.00-0.50) K/uL Baso # (Auto) (0.00-0.20) K/uL Immature Gran # (Auto) (0.01-0.20) K/uL PT (9.0-12.0) Seconds INR (0.9-1.1) Sodium (136-145) mmol/L Potassium (3.5-5.1) mmol/L Chloride (98-107) mmol/L Carbon Dioxide (21-32) mmol/L Anion Gap (3-11) BUN (6-23) mg/dl Creatinine (0.6-1.2) mg/dl Est Cr Clr Drug Dosing ml/min eGFR BUN/Creatinine Ratio (10-20) Glucose (70-99(Fasting)) mg/dl POC Glucose 102 H 106 H 111 H (70-99) mg/dl Estimat Average Glucose mg/dl Hemoglobin A1c (4.5-5.6) % Calcium (8.6-10.3) mg/dl Phosphorus (2.5-4.9) mg/dl Magnesium (1.7-2.4) mg/dl Troponin I High Sens (0-14) pg/ml Triglycerides (0-150) mg/dl Cholesterol (0-200) mg/dl LDL Cholesterol, Calc mg/dl VLDL Cholesterol, Calc (0-30) mg/dl HDL Cholesterol mg/dl Cholesterol/HDL Ratio (0-5) TSH (0.300-4.500) uIu/ml Urine Color Urine Appearance (Clear) Urine pH (4.5-7.5) Ur Specific [place] (1.000-1.030) Urine Protein (Negative) Urine Glucose (UA) (Negative) Urine Ketones (Negative) Urine Blood (Negative) Urine Nitrite (Negative) Urine Bilirubin (Negative) Urine Urobilinogen (Negative) Ur Leukocyte Esterase (Negative) Urine WBC (Auto) (0-5) /hpf Urine RBC (Auto) (0-2) /hpf U Hyaline Cast (Auto) (0-2) /lpf U Epithel Cells (Auto) (0-2) /hpf Urine Bacteria (Auto) (None Seen) Urine Comment 07/02/25 Range/Units 07:15 WBC 5.51 (4.8-10.8) K/ul RBC 3.81 L (4.20-5.40) M/uL Hgb 12.0 (12.0-16.0) g/dl Hct 35.8 L (37.0-47.0) % MCV 94.0 (80.0-100.0) fL MCH 31.5 (25.0-34.0) pg MCHC 33.5 (32.0-36.0) g/dL RDW Std Deviation 51.6 H (36.4-46.3) fL RDW Coeff of [place] 14.8 H (11.5-14.5) % Plt Count 168 (130-400) K/uL MPV 11.3 (9.4-12.4) fL Immature Gran % (Auto) 0.4 % Neut % (Auto) 58.2 % Lymph % (Auto) 23.0 % [place] % (Auto) 11.8 % Eos % (Auto) 5.1 % Baso % (Auto) 1.5 % Neut # (Auto) 3.21 (1.40-6.50) K/uL Lymph # (Auto) 1.27 (1.20-3.40) K/uL [place] # (Auto) 0.65 H (0.11-0.59) K/uL Eos # (Auto) 0.28 (0.00-0.50) K/uL Baso # (Auto) 0.08 (0.00-0.20) K/uL Immature Gran # (Auto) 0.02 (0.01-0.20) K/uL PT 21.9 H (9.0-12.0) Seconds INR 2.2 H (0.9-1.1) Sodium 142 (136-145) mmol/L Potassium 3.5 (3.5-5.1) mmol/L Chloride 106 (98-107) mmol/L Carbon Dioxide 30 (21-32) mmol/L Anion Gap 6 (3-11) BUN 30 H (6-23) mg/dl Creatinine 1.18 D (0.6-1.2) mg/dl Est Cr Clr Drug Dosing 37.4 ml/min eGFR 46.40 BUN/Creatinine Ratio 25.4 H (10-20) Glucose 96 (70-99(Fasting)) mg/dl POC Glucose (70-99) mg/dl Estimat Average Glucose 140 mg/dl Hemoglobin A1c 6.5 H (4.5-5.6) % Calcium 8.8 (8.6-10.3) mg/dl Phosphorus (2.5-4.9) mg/dl Magnesium (1.7-2.4) mg/dl Troponin I High Sens 13.6 (0-14) pg/ml Triglycerides 65 (0-150) mg/dl Cholesterol 87 (0-200) mg/dl LDL Cholesterol, Calc 37 mg/dl VLDL Cholesterol, Calc 13 (0-30) mg/dl HDL Cholesterol 37 mg/dl Cholesterol/HDL Ratio 2.4 (0-5) TSH 0.590 (0.300-4.500) uIu/ml Urine Color Urine Appearance (Clear) Urine pH (4.5-7.5) Ur Specific [place] (1.000-1.030) Urine Protein (Negative) Urine Glucose (UA) (Negative) Urine Ketones (Negative) Urine Blood (Negative) Urine Nitrite (Negative) Urine Bilirubin (Negative) Urine Urobilinogen (Negative) Ur Leukocyte Esterase (Negative) Urine WBC (Auto) (0-5) /hpf Urine RBC (Auto) (0-2) /hpf U Hyaline Cast (Auto) (0-2) /lpf U Epithel Cells (Auto) (0-2) /hpf Urine Bacteria (Auto) (None Seen) Urine Comment Medications Administered Current Inpatient Medications [facility] ([facility] 100 Mg Tab) [facility]: 08/01/25 08:59 Last Admin: 07/02/25 08:24 Dose: 100 mg Amlodipine Besylate (Amlodipine Besylate 5 Mg Tab) [facility]: 08/01/25 02:59 Last Admin: 07/02/25 04:00 Dose: 2.5 mg Aspirin (Aspirin 81 Mg Ectab) 162 mg PO DAILY [facility] Stop: 08/01/25 08:59 Last Admin: 07/02/25 08:24 Dose: 162 mg Atorvastatin Calcium (Atorvastatin 40 Mg Tab) [facility]: 08/01/25 08:59 Last Admin: 07/02/25 08:25 Dose: 80 mg Dextrose (Dextrose 50% 50 Ml Syringe) 25 - 50 ml IV UD PRN; Protocol PRN Reason: Hypoglycemia Protocol Stop: 08/01/25 00:15 Ezetimibe (Ezetimibe 10 Mg Tab) 10 mg PO DAILY [facility] Stop: 08/01/25 08:59 Last Admin: 07/02/25 08:25 Dose: 10 mg Famotidine (Famotidine 20 Mg Tab) 20 mg PO HS [facility] Stop: 08/01/25 20:59 Glucagon (Glucagon For Inj 1 Mg Vial) 1 mg SQ UD PRN; Protocol PRN Reason: Hypoglycemia Protocol Stop: 08/01/25 00:15 Glucose (Glucose 40% Gel 15 Gm Tube) 15 - 30 gm PO UD PRN; Protocol PRN Reason: Hypoglycemia Protocol Stop: 08/01/25 00:15 Glucose (Glucose 10 Tab/Tube) 4 - 8 tab PO UD PRN; Protocol PRN Reason: Hypoglycemia Protocol Stop: 08/01/25 00:15 Hydromorphone HCl (Hydromorphone Inj 0.5 Mg/0.5 Ml Syr) 0.25 mg IV Q4H PRN PRN Reason: Pain Stop: 07/15/25 22:26 Promethazine HCl (Phenergan) 6.25 mg in 50.25 mls @ 201 mls/hr IV Q6H PRN PRN Reason: Nausea And Vomiting Stop: 07/31/25 22:26 Last Infusion: 07/02/25 13:14 Dose: Infused Famotidine (Pepcid 20mg Iv Push) 20 mg in 5 mls @ 2.5 mls/min IV Q12H [facility] Stop: 08/01/25 11:59 Last Admin: 07/02/25 23:56 Dose: 2.5 mls/min Pantoprazole Sodium (Protonix) 40 mg in 10 mls @ 5 mls/min IV BID [facility] Stop: 08/02/25 08:59 Insulin Aspart (Insulin Aspart Per Unit Charge) 0 units SC ACHS [facility] Stop: 08/01/25 00:15 Last Admin: 07/02/25 20:49 Dose: Not Given Isosorbide Mononitrate (Isosorbide [place] Extended Rel 30 Mg Tabcr) 30 mg PO QAM [facility] Stop: 08/01/25 08:59 Last Admin: 07/02/25 08:25 Dose: 30 mg Levothyroxine Sodium (Levothyroxine Sodium 125 Mcg Tablet) 125 mcg PO DAILYBB [facility] Stop: 08/01/25 06:29 Last Admin: 07/03/25 06:02 Dose: 125 mcg Metoprolol Succinate (Metoprolol Succ 25mg Ext Rel Tab) 12.5 mg PO DAILY [facility] Stop: 08/01/25 08:59 Last Admin: 07/02/25 08:25 Dose: 12.5 mg Miscellaneous (Carbohydrates For Hypoglycemia ) 15 - 30 gm PO UD PRN PRN Reason: Hypoglycemia Protocol Stop: 08/01/25 00:15 Nitroglycerin (Nitroglycerin Sl 0.4 Mg/Tab Tab) 0.4 mg SL Q5M PRN PRN Reason: Chest Pain Stop: 07/31/25 22:26 Last Admin: 07/02/25 12:30 Dose: 0.4 mg Oxycodone HCl (Oxycodone Hcl Ir 5 Mg Tab (Immediate Release)) 5 mg PO Q4H PRN PRN Reason: Pain Stop: 07/15/25 22:26 Polyethylene Glycol (Polyethylene (Miralax) 17 Gm Pack) 17 gm PO DAILY [facility] Stop: 08/01/25 08:59 Last Admin: 09/06/25 08:24 Dose: 17 gm (1) Chest pain Chest pain type: unspecified Qualified Code(s): R07.9 - Chest pain, unspecified
--- NOTE | 2025-07-03 08:36 | Cardiology Progress Note ---
Date of Service July 03, 2025 Assessment & Plan (1) Chest pain: (2) CAD (coronary artery disease): (3) Atrial fibrillation: (4) H/O aortic valve replacement: (5) History of mitral valve replacement: (6) H/O tricuspid valve repair: Plan Assessment: 79 year old medically complex female admitted for evaluation of intermittent chest pain, reproducible to palpation. given complex cardiac history, cardiology was requested for evaluation/recommenations. Plan: Chest pain CAD A-fib/flutter--chronic History of AVR with redo; MVR with redo and Tricuspid valve repair -Chest pain free today. -BP still well above target. Increase Imdur to 60mg PO Daily, but monitor BP c losely. -Discussed her reproducible chest pain, noted that primary team ordered pain medications PRN, but explained that patient needs to ask for them if needed. -As explained to primary team yesterday, recommend GI work up if pain persist especially while eating. Continued management per primary team. -Continue Toprol xl, ASA, Atorvastatin and Zetia as per current regimen. -Review of telemetry show A-fib rate controlled. Occasional PVC and couplets overnight. Case has been discussed with Dr. Salcido. Further recommendations regarding plan of care as per his assessment. I spent a total of 30 minutes on the date of service in preparation, delivery, documentation of the care provided to the patient excluding any time spent in the performance of separately billed services. EVIE Fagan [facility] Admission and Anticipated Discharge Date Admission Date: July 01, 2025 Supervising Physician Co-Signing Physician Notes I have reviewed the advanced practitioner's documentation on the date of service referenced in note, and I agree with, and take responsibility for the plan of care. I spent a total of [20] minutes coordinating, documenting, and providing care for this patient excluding time spent in the performance of separately billed services or time spent by another provider. 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 Chronic A-fib on metoprolol and Coumadin, history of diabetes mellitus CVA chronic kidney disease presents with episodes of chest pain significant stressors at home. sudden onset of chest discomfort radiating into the back and sometimes into the abdomen can occur randomly usually at rest or after eating, nitroglycerin does help occasionally. Today after eating lunch was her most severe pain came on very intense 10 out of 10 was associated with nausea and bringing up mucus. No acute EKG changes at that time troponins have been flat troponin stable . echo no new wall motion changes , abnormal septa; wall motion secondary to post op CT chest reviewed consider GI evaluation Optimize anginal therapy Subjective 07/03/2025: Patient seen and examined in follow up today. Feeling well out of bed in a chair visiting with her son. No recurrence of chest pain, She is currently sipping a hot tea. Labs, vitals, diagnostics, telemetry and documentation reviewed. Telemetry reviewed showing A-fib. there was notation of a few ventricular couplets overnight, but no other acute concern. Review of Systems Review of Systems: All systems reviewed & are unremarkable except as noted in HPI & below Physical Exam Constitutional: + thin and + frail appearing; no acute d istress and not ill appearing Neck: normal visual inspection and trachea midline Respiratory: normal respiratory effort, lungs clear to auscultation Cardiovascular: Rate/Rhythm: regular rate and + irregularly irregular Heart Sounds: normal S1, normal S2 and + murmur (+1/6 systolic ) Vessels: dorsalis pedis pulses present; no JVD Extremities: no edema Skin: no rashes, warm and dry Psychiatric: A+Ox3, euthymic affect Results & Data Vital Signs (Past 12 Hours) Vital Signs Temp Pulse Pulse Resp BP BP Pulse Ox 07/03/25 07:44 36.7 C 63 16 179/83 H 07/03/25 07:19 64 07/03/25 02:56 36.8 C 65 16 129/62 07/02/25 22:47 36.8 C 71 16 164/74 H 94 07/02/25 22:05 69 O2 Del Method 07/03/25 07:44 Room Air 07/03/25 07:19 07/03/25 02:56 Room Air 07/02/25 22:47 Room Air 07/02/25 22:05 Laboratory Results CBC 07/03/25 Range/Units 05:34 WBC 6.35 (4.8-10.8) K/ul RBC 4.01 L (4.20-5.40) M/uL Hgb 12.8 (12.0-16.0) g/dl Hct 37.9 (37.0-47.0) % Plt Count 166 (130-400) K/uL Comprehensive Metabolic Panel 07/03/25 Range/Units 05:34 Sodium 143 (136-145) mmol/L Potassium 3.7 (3.5-5.1) mmol/L Chloride 109 H (98-107) mmol/L Carbon Dioxide 29 (21-32) mmol/L BUN 26 H (6-23) mg/dl Creatinine 1.06 (0.6-1.2) mg/dl Glucose 94 (70-99(Fasting)) mg/dl Calcium 9.1 (8.6-10.3) mg/dl Intake and Output 07/02/25 07/03/25 07/03/25 22:59 06:59 14:59 Intake Total 440 / 540.25 50 / 540.25 Balance 440 / 540.25 50 / 540.25 Intake: Oral 440 / 490 50 / 490 Other: # Unmeasured Voids 1 1 Weight 79.1 kg Weight Measurement Method Built in [facility] Care Time/CCT Total # of Minutes Spent Total Time Spent with Patient: Total time spent is greater than 50% in coordination of care (as documented) at patient's floor/unit and/or counseling patient: [place] [id number] SUB INP/OBS CARE 3/50MIN Patient Type Established Diagnoses Chest pain R07.9 Chest pain type: unspecified CAD (coronary artery disease) I25.10 Associated angina: unspecified whether angina present Coronary Disease-Associated Artery/Lesion type: unspecified vessel or lesion type [place] vs. transplanted heart: [place] heart Atrial fibrillation I48.91 H/O aortic valve replacement Z95.2 History of mitral valve replacement Z95.2 H/O tricuspid valve repair Z98.890 Time Spent (min) 50 (1) Chest pain Chest pain type: unspecified Qualified Code(s): R07.9 - Chest pain, unspecified (2) CAD (coronary artery disease) Associated angina: unspecified whether angina present Coronary Disease- Associated Artery/Lesion type: unspecified vessel or lesion type [place] vs. transplanted heart: [place] heart Qualified Code(s): I25.10 - Atherosclerotic heart disease of [place] coronary artery without angina pectoris
[2025-07-03 08:43] LABS: INR 1.9 (0.9-1.1); Prothrombin Time 19.8 Seconds (9.0-12.0)
[2025-07-03] MEDS: PANTOprazole 40 MG/10 ML SYR IV SCH (09:02)
[2025-07-03] MEDS: ISOSORBIDE MONO EXTENDED REL 60 MG TABCR PO SCH (09:17)
[2025-07-03] MEDS: ACETAMINOPHEN 500 MG TAB PO ONE (09:53)
--- NOTE | 2025-07-03 10:45 | Electrocardiogram Report ---
Test Reason : Blood Pressure : */* mmHG Vent. Rate : 62 BPM Atrial Rate : 256 BPM P-R Int : * ms QRS Dur : 94 ms QT Int : 468 ms P-R-T Axes : * 79 77 degrees QTcB Int : 475 ms Atrial fibrillation Abnormal ECG When compared with ECG of 02-Jul-2025 06:05, No significant change Confirmed by Fredi Wayne ([id number]) on 07/03/2025 10:45:22 AM Referred By: REFERRED SELF Confirmed By: Fredi Wayne
[2025-07-03] MEDS: WARFARIN SOD 5 MG TAB PO SCH (15:55)
[2025-07-03] MEDS: SUCRALFATE 1 GM/10 ML UDC PO SCH (15:55)
[2025-07-03] MEDS: POTASSIUM CHLORIDE CRTAB 20 MEQ TABCR PO STA (16:17)
[2025-07-03] MEDS ORDERED: WARFARIN SOD 5 MG TAB PO SCH (21:00)
[2025-07-03] MEDS ORDERED: OLANZAPINE 2.5 MG TAB PO PRN (22:50)
--- NOTE | 2025-07-03 23:02 | Communication Note ---
Date of Service: July 03, 2025 Patient noted to be confused as per RN. Some trouble with redirectability Possibly from oxycodone Rx given in AM as per RN. AP Delirium (oxycodone Rx possibly contributory) One-to-one as needed Zyprexa as needed if patient not amenable to behavioral management Add oxycodone to allergy/ADR list.
[2025-07-04] MEDS: METOPROLOL TARTRATE 1 MG/ML VIAL IV STA (01:04)
[2025-07-04] MEDS: POTASSIUM CHLORIDE / WTR 10 MEQ/100 ML PLCT IV SCH (05:19)
--- NOTE | 2025-07-04 09:15 | Cardiology Progress Note ---
Date of Service July 04, 2025 Assessment & Plan (1) Chest pain: (2) CAD (coronary artery disease): (3) Atrial fibrillation: (4) H/O aortic valve replacement: (5) History of mitral valve replacement: (6) H/O tricuspid valve repair: Plan Assessment: 79 year old medically complex female admitted for evaluation of intermittent chest pain, reproducible to palpation. given complex cardiac history, cardiology was requested for evaluation/recommendations. Plan: Chest pain CAD A-fib/flutter--chronic History of AVR with redo; MVR with redo and Tricuspid valve repair -Chest pain free today--acute delirium has resolved after patient received oral oxycodone yesterday. Ongoing pain management per primary team. -BP with Marked improvement, continue Imdur, amlodipine, Toprol xl. Continue warfarin as per current regimen for oral AC therapy. -As explained to primary team yesterday, recommend GI work up if pain persist especially while eating. Continued management per primary team. Son has updated us that patient will have a speech/swallow eval. ? esophageal stricture, ? spasm vs other GI process. -Continue Toprol xl, ASA, Atorvastatin and Zetia as per current regimen. -Torsemide on hold, if renal function remains stable, improves, would recommend restarting Torsemide (home regimen is 50mg PO BID) -Review of telemetry show A-fib rate controlled. Elevated rates noted during acute delirium event. now resolved. -No further cardiac work up is indicated during course of hospitalization. Recommend that patient have OP Cardiology follow up in 4-6 weeks (usually sees Zac Oakley Pa-C) Specialty Impression: 1. Atypical chest pain 2. Hx of CAD s/p CABG 3. Hx of AVR, MVR and Tricuspid valve repair (2002 with redo 2015) 4. Chronic A-fib/flutter--on warfarin Recommended medication(s) at discharge: Cardiac medication recommendation: 1. ASA 162mg PO QD 2. Atorvastatin 80mg PO QD 3. Ezetimibe 10mg PO QD 4. Metoprolol succinate 12.5mg PO QD 5. Amlodipine 2.5mg PO QD 6. Isosorbide mononitrate 60mg PO QD 7. Warfarin (as per current regimen) 8. Torsemide (TBD) Will discuss with attending. Recommended discharge testing: -Recommend CBC and BMP 1-2 weeks post discharge. Other recommended care at discharge: None at this time. Follow- up in Specialty Clinic: Follow up in Cardiology clinic 4-6 weeks post discharge. Typically sees Zac Oakley PA-C Case has been discussed with Dr. Loaiza. Further recommendations regarding plan of care as per his assessment. I spent a total of 30 minutes on the date of service in preparation, delivery, documentation of the care provided to the patient excluding any time spent in the performance of separately billed services. EVIE Fagan [facility] [address] Admission and Anticipated Discharge Date Admission Date: July 03, 2025 Supervising Physician Co-Signing Physician Notes Attending attestation: Case reviewed with the advanced practitioner. I have personally performed a history and physical examination on the patient. I have reviewed the advanced practitioner's documentation on the date of service referenced in note, and I agree with, and take responsibility for the plan of care. Subjective: Patient accompanied by her son, Nicho, during my assessment. No symptoms suggestive of angina today. Ongoing abdominal discomfort, tolerated her evening meal by taking bites with water and tea. Impression/ Plan: -Problem list as noted above. Blood pressure trending toward improvement. Isosorbide mononitrate had been titrated for blood pressure control then angina. INR therapeutic at 2.3. Continue warfarin. I spent a total of 20 minutes coordinating, documenting, and providing care for this patient excluding time spent in the performance of separately billed services or time spent by another provider. Jr Loaiza, Subjective 07/04/2025: Patient seen and examined in follow up today. Feeling well from a cardiac perspective. Offers no acute cardiac concerns. her son remains at bedside. patient has been experiencing musculoskeletal pain yesterday afternoon and was administered PO Oxycodone. Per discussion with nurse, patient became very confused and had a restless night. She is resting in bed today, awake, alert, oriented but a bit tearful. The event shook her up. Labs, vitals, diagnostics, telemetry and documentation reviewed. Telemetry reviewed showing A-fib, rates in the 60's. Overnight from [id number] she had rates in the 120's but this was during an acute delirium episode requiring a 1:1 sitter Review of Systems Review of Systems: All systems reviewed & are unremarkable except as noted in HPI & below Physical Exam Constitutional: well developed, + thin and + frail appearing; no acute distress and not ill appearing Neck: normal visual inspection and trachea midline Respiratory: normal respiratory effort, lungs clear to auscultation Cardiovascular: Rate/Rhythm: regular rate and + irregularly irregular Heart Sounds: normal S1, normal S2 and + murmur (+1/6 systolic ) Vessels: dorsalis pedis pulses present; no JVD Extremities: no edema Musculoskeletal: Head/Neck/Chest: + chest tenderness (chest (sub- sternal/epigastic) and mid back tenderness upon palpation) Skin: no rashes, warm and dry Psychiatric: A+Ox3, euthymic affect Results & Data Vital Signs (Past 12 Hours) Vital Signs Temp Pulse Pulse Resp BP BP Pulse Ox 07/04/25 08:48 68 07/04/25 01:19 100 H 120/59 L 07/04/25 01:17 97 H 120/59 L 93 07/03/25 23:00 36.8 C 106 H 18 160/79 H 93 07/03/25 22:08 62 O2 Del Method 07/04/25 08:48 07/04/25 01:19 07/04/25 01:17 Room Air 07/03/25 23:00 Room Air 07/03/25 22:08 Laboratory Results Coagulation 07/04/25 Range/Units 10:24 PT 23.3 H (9.0-12.0) Seconds CBC 07/04/25 Range/Units 10:24 WBC 6.65 (4.8-10.8) K/ul RBC 3.89 L (4.20-5.40) M/uL Hgb 12.5 (12.0-16.0) g/dl Hct 37.2 (37.0-47.0) % Plt Count 166 (130-400) K/uL Comprehensive Metabolic Panel 07/04/25 Range/Units 10:24 Sodium 141 (136-145) mmol/L Potassium 4.1 (3.5-5.1) mmol/L Chloride 110 H (98-107) mmol/L Carbon Dioxide 27 (21-32) mmol/L BUN 26 H (6-23) mg/dl Creatinine 1.26 H (0.6-1.2) mg/dl Glucose 103 H (70-99(Fasting)) mg/dl Calcium 8.9 (8.6-10.3) mg/dl Intake and Output 07/03/25 07/04/25 07/04/25 22:59 06:59 14:59 Intake Total 350 / 470 Balance 350 / 470 Intake: Oral 350 / 470 Other: Other Intake Source NPO # Unmeasured Voids 1 1 PG Care Time/CCT Total # of Minutes Spent Total Time Spent with Patient: Total time spent is greater than 50% in coordination of care (as documented) at patient's floor/unit and/or counseling patient: Coding Level of Care Code 57158 SUB INP/OBS CARE 3/50MIN Diagnoses Chest pain R07.9 Chest pain type: unspecified CAD (coronary artery disease) I25.10 Associated angina: unspecified whether angina present Coronary Disease-Associated Artery/Lesion type: unspecified vessel or lesion type [place] vs. transplanted heart: [place] heart Atrial fibrillation I48.91 H/O aortic valve replacement Z95.2 History of mitral valve replacement Z95.2 H/O tricuspid valve repair Z98.890 (1) Chest pain Chest pain type: unspecified Qualified Code(s): R07.9 - Chest pain, unspecified (2) CAD (coronary artery disease) Associated angina: unspecified whether angina present Coronary Disease- Associated Artery/Lesion type: unspecified vessel or lesion type [place] vs. transplanted heart: [place] heart Qualified Code(s): I25.10 - Atherosclerotic heart disease of [place] coronary artery without angina pectoris
[2025-07-04 10:47] LABS: Hematocrit (blood only) 37.2 % (37.0-47.0); Hemoglobin 12.5 g/dl (12.0-16.0); Mean Corpuscular Hemoglobin 32.1 pg (25.0-34.0); Mean Corpuscular Volume 95.6 fL (80.0-100.0); Platelet Count 166 K/uL (130-400); RDW Standard Deviation 53.5 fL (36.4-46.3); Red Blood Count 3.89 M/uL (4.20-5.40); White Blood Count 6.65 K/ul (4.8-10.8)
[2025-07-04 11:03] LABS: Anion Gap 4.0 (3-11); Blood Urea Nitrogen 26.0 mg/dl (6-23); Calcium 8.9 mg/dl (8.6-10.3); Carbon Dioxide 27.0 mmol/L (21-32); Chloride 110.0 mmol/L (98-107); Creatinine Clr Calc Pharmacy 34.9 ml/min; Glucose 103.0 mg/dl (70-99(Fasting)); Magnesium 2.5 mg/dl (1.7-2.4); Potassium 4.1 mmol/L (3.5-5.1); Sodium 141.0 mmol/L (136-145)
[2025-07-04 11:18] LABS: INR 2.3 (0.9-1.1); Prothrombin Time 23.3 Seconds (9.0-12.0)
--- NOTE | 2025-07-04 11:29 | Hospitalist Progress Note ---
Date of Service July 04, 2025 Assessment & Plan (1) Chest pain: Plan: Ms. Vann is a pleasant 79F with PMH including CAD s/p CABG, chronic afib on coumadin, HFpEF, CKD3, rheumatic heart disease, pHTN, NIDDM, HLD, HTN who presents with chest pain #Chest pain -History of CAD and anginal pain -Reproducible sternal chest pain with palpation -Son reports improvement of pain with nitro -Also endorses difficulty swallowing and chest pain with eating -Trops are normal. Cardio evaluated, no ACS -Despite the reported improvement with nitro, doubtful this is cardiac in etiology Plan -Will ask BLOW MOLDING MACHINE OPERATOR to evaluate her with her chest pain with eating. -May need GI eval or MBS -Avoid all opioids for chest pain. tylenol only. nsaids contraindicated with her CKD -Dispo TBD #Hospital acquired delirium -Son states she is somewhat forgetful at home. likely mild cognitive impairment at baseline -Received opioids prior to onset of delrium -No focal deficits to suggest stroke -No seizure like activity to suggest status, low suspicion for non convulsive status Plan -Avoid all opioids. Avoid Beer's list medications -Reorientation techniques, instructions given to son -Zyprexa is ordered, only to be given for agitation #Epigastric discomfort -Improved with additional of PPI #KAROLINE on CKD3 - resolved -Avoid nephrotoxic agents if possible chronic diastolic heart failure (EF 50 to 54%, TTE 2023) hx CAD status post CABG/CVA/PVD A-fib/atrial flutter on Coumadin, INR therapeutic hx rheumatic heart disease status post surgery (history bioprosthetic AVR, redo bioprosthetic MVR, tricuspid valve repair) moderate TR pulmonary hypertension hyperlipidemia on ezetimibe DM2 diet-controlled, well-controlled as of hemoglobin A1c of 6.8 from last year, ISS BG goal 110-140, carb count coverage, current hemoglobin A1c 6.5% Hypothyroidism, outpatient TSH elevated at 4.6 from October 2024 , current 0.59 DVT prophylaxis. Coumadin INR goal between 2 and 3 if no intervention from cardiology standpoint Full code I spent a total of 42 minutes coordinating, documenting, and providing care for this patient excluding time spent in the performance of separately billed services. This included personally reviewing all current laboratories and imaging studies, medical reconciliation, outpatient chart review and discussion with specialists Admission and Anticipated Discharge Date Admission Date: July 03, 2025 Subjective Resting in bed. confused but answering questions. Patient denies F/C, CP, palpitations, SOB, dyspnea, abd pain, N/V/D. long d/w son at bedside this AM Physical Exam Physical Exam: Vitals and labs reviewed General: elderly appearing in NAD HEENT: EOMI, PERRLA Neck: Supple Cardiac: regular rate. irregular rhythm. Lungs: CTA no rhonchi wheezing or rales Abd: S NT ND BS positive MSK: Full ROM. No obvious deformities Ext: No Edema cyanosis Skin: Warm, Dry Neuro: AO to person only. no focal deficits. Psych: calm Results & Data Results & Data Vital Signs (Past 12 Hours) Vital Signs Temp Pulse Pulse Resp BP BP Pulse Ox 07/04/25 09:26 36.6 C 72 16 181/89 H 94 07/04/25 08:48 68 07/04/25 01:19 100 H 120/59 L 07/04/25 01:17 97 H 120/59 L 93 O2 Del Method 07/04/25 09:26 Room Air 07/04/25 08:48 07/04/25 01:19 07/04/25 01:17 Room Air Laboratory Results Abnormal lab results 07/03/25 07/03/25 07/04/25 Range/Units 16:03 20:20 10:24 RBC 3.89 L (4.20-5.40) M/uL RDW Std Deviation 53.5 H (36.4-46.3) fL RDW Coeff of Teddy 15.1 H (11.5-14.5) % Chloride 110 H (98-107) mmol/L BUN 26 H (6-23) mg/dl Creatinine 1.26 H (0.6-1.2) mg/dl BUN/Creatinine Ratio 20.6 H (10-20) Glucose 103 H (70-99(Fasting)) mg/dl POC Glucose 141 H 104 H (70-99) mg/dl Magnesium 2.5 H (1.7-2.4) mg/dl (1) Chest pain Chest pain type: unspecified Qualified Code(s): R07.9 - Chest pain, unspecified
[2025-07-04 11:30] VITALS: RESP 18
[2025-07-04] MEDS: WARFARIN SOD 2.5 MG TAB PO SCH (17:46)
[2025-07-04] MEDS: MELATONIN 3 MG TAB PO PRN (20:40)
[2025-07-05 07:24] LABS: INR 2.4 (0.9-1.1); Prothrombin Time 24.5 Seconds (9.0-12.0)
--- NOTE | 2025-07-05 08:41 | Cardiology Progress Note ---
Date of Service July 05, 2025 Assessment & Plan (1) Chest pain: (2) CAD (coronary artery disease): (3) Atrial fibrillation: (4) H/O aortic valve replacement: (5) History of mitral valve replacement: (6) H/O tricuspid valve repair: Plan Assessment: 79 year old medically complex female admitted for evaluation of intermittent chest pain, reproducible to palpation. given complex cardiac history, cardiology was requested for evaluation/recommendations. Plan: Chest pain CAD A-fib/flutter--chronic History of AVR with redo; MVR with redo and Tricuspid valve repair -patient is notably exhausted, but has been having some confusion "sun-downers" episodes overnight. -Remains chest pain free. -patient and family are awaiting speech/swallow study results. Patient has been taking several small sips of fluids with her meals. -Restart home regimen of Torsemide 50mg PO BID -BP with Marked improvement, continue Imdur, amlodipine, Toprol xl. -Continue warfarin as per current regimen for oral AC therapy. -As explained to primary team yesterday, recommend GI work up if pain persist especially while eating. Continued management per primary team. Patient/family awaiting speech/swallow eval reusults. -Continue Toprol xl, ASA, Atorvastatin and Zetia as per current regimen. -No further cardiac work up is indicated during course of hospitalization. Recommend that patient have OP Cardiology follow up in 4-6 weeks (usually sees Zac Oakley Pa-C) Specialty Impression: 1. Atypical chest pain 2. Hx of CAD s/p CABG 3. Hx of AVR, MVR and Tricuspid valve repair (2002 with redo 2015) 4. Chronic A-fib/flutter--on warfarin Recommended medication(s) at discharge: Cardiac medication recommendation: 1. ASA 162mg PO QD 2. Atorvastatin 80mg PO QD 3. Ezetimibe 10mg PO QD 4. Metoprolol succinate 12.5mg PO QD 5. Amlodipine 2.5mg PO QD 6. Isosorbide mononitrate 60mg PO QD 7. Warfarin (as per current regimen) 8. Torsemide 50mg PO BID as per home regimen. Recommended discharge testing: -Recommend CBC and BMP 1-2 weeks post discharge. Other recommended care at discharge: None at this time. Follow- up in Specialty Clinic: Follow up in Cardiology clinic 4-6 weeks post discharge. Typically sees Zac Oakley PA-C Case has been discussed with Dr. Loaiza. Further recommendations regarding plan of care as per his assessment. I spent a total of 30 minutes on the date of service in preparation, delivery, documentation of the care provided to the patient excluding any time spent in the performance of separately billed services. EVIE Fagan [facility] Admission and Anticipated Discharge Date Admission Date: July 03, 2025 Supervising Physician Co-Signing Physician Notes Attending attestation: Case reviewed with the advanced practitioner. I have personally performed a history and physical examination on the patient. I have reviewed the advanced practitioner's documentation on the date of service referenced in note, and I agree with, and take responsibility for the plan of care. I spent a total of 20 minutes coordinating, documenting, and providing care for this patient excluding time spent in the performance of separately billed services or time spent by another provider. Jr Loaiza, DO Subjective 07/05/2025: Patient seen and examined in follow up today. Feeling fair. Offers no cardiac concerns, but endorses being exhausted. Son remains at bedside and endorses that patient had a rough night with confusion, she is oriented at time of my visit. Labs, vitals, diagnostics, telemetry and documentation reviewed. Telemetry reviewed showing A-fib rates 50-70's with occasional couplets. Review of Systems Review of Systems: All systems reviewed & are unremarkable except as noted in HPI & below Physical Exam Constitutional: well developed, + thin and + frail appearing; no acute distress and not ill appearing Neck: normal visual inspection and trachea midline Respiratory: normal respiratory effort, lungs clear to auscultation Cardiovascular: Rate/Rhythm: regular rate and + irregularly irregular Heart Sounds: normal S1, normal S2 and + murmur (+1/6 systolic ) Vessels: dorsalis pedis pulses present; no JVD Extremities: no edema Musculoskeletal: Head/Neck/Chest: + chest tenderness (chest (sub- sternal/epigastic) and mid back tenderness upon palpation) Skin: no rashes, warm and dry Psychiatric: A+Ox3, euthymic affect Results & Data Vital Signs (Past 12 Hours) Vital Signs Temp Pulse Pulse Resp BP BP Pulse Ox 07/05/25 08:19 36.5 C 55 L 18 178/67 H 97 07/05/25 02:22 36.5 C 75 18 142/68 H 95 07/04/25 22:29 36.5 C 70 18 146/77 H 95 07/04/25 21:53 63 O2 Del Method 07/05/25 08:19 Room Air 07/05/25 02:22 Room Air 07/04/25 22:29 Room Air 07/04/25 21:53 Laboratory Results Coagulation 07/04/25 07/05/25 Range/Units 10:24 06:21 PT 23.3 H 24.5 H (9.0-12.0) Seconds CBC 07/04/25 Range/Units 10:24 WBC 6.65 (4.8-10.8) K/ul RBC 3.89 L (4.20-5.40) M/uL Hgb 12.5 (12.0-16.0) g/dl Hct 37.2 (37.0-47.0) % Plt Count 166 (130-400) K/uL Comprehensive Metabolic Panel 07/04/25 Range/Units 10:24 Sodium 141 (136-145) mmol/L Potassium 4.1 (3.5-5.1) mmol/L Chloride 110 H (98-107) mmol/L Carbon Dioxide 27 (21-32) mmol/L BUN 26 H (6-23) mg/dl Creatinine 1.26 H (0.6-1.2) mg/dl Glucose 103 H (70-99(Fasting)) mg/dl Calcium 8.9 (8.6-10.3) mg/dl Intake and Output 07/04/25 07/05/25 07/05/25 22:59 06:59 14:59 Intake Total 200 / 200 Balance 200 / 200 Intake: Oral 200 / 200 Other: Other Intake Source npo # Unmeasured Voids 2 Weight 79 kg Coding [place] [address] SUB INP/OBS CARE 3/50MIN Patient Type Established Diagnoses Chest pain R07.9 Chest pain type: unspecified CAD (coronary artery disease) I25.10 Associated angina: unspecified whether angina present Coronary Disease-Associated Artery/Lesion type: unspecified vessel or lesion type [place] vs. transplanted heart: [place] heart Atrial fibrillation I48.91 H/O aortic valve replacement Z95.2 History of mitral valve replacement Z95.2 H/O tricuspid valve repair Z98.890 Time Spent (min) 50 Comment 30 minutes spent by EVIE Rodriguez, [address] Loaiza (1) Chest pain Chest pain type: unspecified Qualified Code(s): R07.9 - Chest pain, unspecified (2) CAD (coronary artery disease) Associated angina: unspecified whether angina present Coronary Disease- Associated Artery/Lesion type: unspecified vessel or lesion type [place] vs. transplanted heart: [place] heart Qualified Code(s): I25.10 - Atherosclerotic heart disease of [place] coronary artery without angina pectoris
--- NOTE | 2025-07-05 10:21 | Fluoroscopy Report ---
FL barium swallow CLINICAL HISTORY: c/o refulx. TECHNIQUE: Barium contrast and effervescent crystals were administered to the patient under fluorosco pic examination. Multiple images were obtained and submitted for review. FLUOROSCOPY TIME: 0.7 minutes FLUOROSCOPY IMAGES: 10 Ka,r: 5.7 mGy COMPARISON: None FINDINGS: There are tertiary contractions of the esophagus. There is no persistent esophageal strictu re. No hiatal hernia seen. 12 mm barium tablet passed through the esophagus and into the stomach with out delay. There was liquid aspiration during the exam. No gastroesophageal reflux was demonstrated d uring the exam. IMPRESSION: 1. Aspiration. 2. Otherwise as described. ACT 112: Negative or not required by law. The above report was generated using voice recognition software. It may contain grammatical, syntax o r spelling errors. Electronically signed by: Sameer Sterling M.D. 07/05/2025 10:19 AM
[2025-07-05 12:01] VITALS: PULSE 59; TEMP 97.3; O2SAT 95
[2025-07-05] MEDS: TORSEMIDE 10 MG TAB PO SCH (13:23)
--- NOTE | 2025-07-05 14:50 | Discharge Summary ---
Discharge Summary Date of Service July 05, 2025 Principal Dx & Hospital Course #1 = Principal Diagnosis (1) Chest pain: Ms. Vann is a pleasant 79F with PMH including CAD s/p CABG, chronic afib on coumadin, HFpEF, CKD3, rheumatic heart disease, pHTN, NIDDM, HLD, HTN who presents with chest pain. Etiology likely non cardiac. cardio was consulted, her imdur dose was increased. She endorsed difficulty swallowing some food and substernal pain with eating. SAUSAGE INSPECTOR was consulted. MBS today showed minimal aspiration to liquids but no major issues. SAUSAGE INSPECTOR giving diet recommendations to patient and son today. Her course was c/b hospital acquired delirium, likely due to pain medications which were stopped. today she is AOx3 answering questions appropriately. she has no complaints and is eager to go home. vitals and labs are stable for dc. d/w son at bedside who agrees with plan. #Chest pain -History of CAD and anginal pain -Reproducible sternal chest pain with palpation -Son reports improvement of pain with nitro -Also endorses difficulty swallowing and chest pain with eating -Trops are normal. Cardio evaluated, no ACS -Despite the reported improvement with nitro, doubtful this is cardiac in etiology #Hospital acquired delirium -Son states she is somewhat forgetful at home. likely mild cognitive impairment at baseline -Received opioids prior to onset of delrium -No focal deficits to suggest stroke -No seizure like activity to suggest status, low suspicion for non convulsive status Plan -Avoid all opioids. Avoid Beer's list medications -Reorientation techniques, instructions given to son -Zyprexa is ordered, only to be given for agitation #Epigastric discomfort -Improved with additional of PPI #KAROLINE on CKD3 - resolved -Avoid nephrotoxic agents if possible chronic diastolic heart failure (EF 50 to 54%, TTE 2023) hx CAD status post CABG/CVA/PVD A-fib/atrial flutter on Coumadin, INR therapeutic hx rheumatic heart disease status post surgery (history bioprosthetic AVR, redo bioprosthetic MVR, tricuspid valve repair) moderate TR pulmonary hypertension hyperlipidemia on ezetimibe DM2 diet-controlled, well-controlled as of hemoglobin A1c of 6.8 from last year, ISS BG goal 110-140, carb count coverage, current hemoglobin A1c 6.5% Hypothyroidism, outpatient TSH elevated at 4.6 from October 2024 , current 0.59 DVT prophylaxis. Coumadin INR goal between 2 and 3 if no intervention from cardiology standpoint Full code I spent a total of 39 minutes coordinating, documenting, and providing care for this patient excluding time spent in the performance of separately billed services. This included personally reviewing all current laboratories and imaging studies, medical reconciliation, outpatient chart review and discussion with specialists Notes For Next Care Provider Medication Changes From Visit imdur dose increased protonix added norvasc 2.5 added Admission HPI Per Admitting Provider History obtained from patient, family, and records. Medical history significant for chronic diastolic heart failure (EF 50 to 54%, TTE 2024), CAD status post CABG, A-fib/atrial flutter on Coumadin, rheumatic heart disease (history bioprosthetic AVR, redo bioprosthetic MVR, tricuspid valve repair), moderate TR, pulmonary hypertension, hyperlipidemia, CVA, PVD, DM2 diet-controlled, hypothyroidism, CRI (baseline creatinine 1.2-1.3), GERD, Gilbert syndrome as per records. Last confinement 2015 for decompensated heart failure. [place] [facility] [place] for follow-up visit. Intermittent chest discomfort going to the back relieved by nitroglycerin. Hypertension and atypical chest discomfort as per provider note. Stress testing referral offered and declined by patient. Imdur trial recommended. Patient had recurrent substernal pain going to the back today associated with shortness of breath, diaphoresis. No cough symptoms. Different from reflux. Episode more intense than last month. Patient unaware of blood pressure control at home. Patient compliant with home medications. Patient busy with some rearranging at home although not doing any heavy lifting as per son. Symptoms improved with nitroglycerin intake at home. Patient denies headache symptoms. Patient denies unusual fluid retention. Patient directed to ER by outpatient cardiology provider. Patient currently comfortable. Highest SBP of 180s documented at the ER. Medical History as above Surgical History : Breast biopsy/breast lesion excision, CABG, cholecystectomy, cataract surgeries, bioprosthetic MVR/AVR, MAURY, tricuspid repair Family History : Heart disease, pancreatic cancer Personal/Social history : Non-smoker, no EtOH intake, homemaker in her younger years Discharge Exam Vitals and labs reviewed General: Well appearing, NAD HEENT: EOMI, PERRLA Neck: Supple Cardiac: RRR no rubs gallops or murmurs Lungs: CTA no rhonchi wheezing or rales Abd: S NT ND BS positive MSK: Full ROM. No obvious deformities Ext: No Edema cyanosis Skin: Warm, Dry Neuro: AOx3 No focal deficits. Psych: Normal Mood Updated Medication List Medication Instructions Recorded Confirmed Type allopurinol 100 mg tablet 100 mg PO QAM 07/01/25 07/01/25 History aspirin 81 mg tablet,delayed 162 mg PO DAILY 07/01/25 07/01/25 History release atorvastatin 80 mg tablet 80 mg PO QAM 07/01/25 07/01/25 History eplerenone 25 mg tablet (Inspra) 25 mg PO DAILY 07/01/25 07/01/25 History ezetimibe 10 mg tablet (Zetia) 10 mg PO DAILY 07/01/25 07/01/25 History famotidine 20 mg tablet 20 mg PO HS 07/01/25 07/01/25 History isosorbide mononitrate 30 mg 30 mg PO QAM 07/01/25 07/01/25 History tablet,extended release 24 hr levothyroxine 125 mcg tablet 125 mcg PO DAILYBB 07/01/25 07/01/25 History meclizine 12.5 mg tablet 12.5 mg PO TID PRN Dizziness 07/01/25 07/01/25 History metoprolol succinate 25 mg 12.5 mg PO DAILY 07/01/25 07/01/25 History tablet,extended release 24 hr nitroglycerin 0.4 mg sublingual 0.4 mg sublingual DIRECTED PRN 07/01/25 07/01/25 History tablet Chest Pain polyethylene glycol 3350 17 17 g PO DAILY 07/01/25 07/01/25 History gram/dose oral powder (Miralax) potassium chloride 10 mEq 10 meq PO DAILY 07/01/25 07/01/25 History tablet,extended release potassium chloride 10 mEq 10 meq PO Q OTHER DAY 07/01/25 07/01/25 History tablet,extended release torsemide 100 mg tablet 50 mg PO BID 07/01/25 07/01/25 History warfarin 5 mg tablet 2.5 - 5 mg PO QPM 07/01/25 07/01/25 History amlodipine 5 mg tablet 2.5 mg (1/2 x 5 mg) PO QAM 30 days 07/05/25 Rx #15 tabs isosorbide mononitrate 60 mg 60 mg PO QAM 30 days #30 tabs 07/05/25 Rx tablet,extended release 24 hr pantoprazole 40 mg tablet,delayed 40 mg PO DAILY 30 days #30 tabs 07/05/25 Rx release (Protonix) Hospital Stay Data Consultations 07/01/25 21:30 ED Decision to Admit Stat 07/01/25 22:27 Consult Cardiology Routine 07/02/25 00:16 Consult Cardiology Routine Diagnostic Imagining Performed 07/02/25 17:33 CT angio chest PE protocol Routine 07/05/25 09:00 FL barium swallow Routine Pending Results Patient Have Any Pending Studies at Discharge: No Discharge Instructions Given to Patient (Per Discharging Provider) In addition to diet instructions as above, try not to eat 1 hour before bed. Try to avoid opioids and benadryl if possible. Total Time Total Time Spent Total Time Spent (In Minutes): 39
[2025-07-05 15:08] VITALS: BP 178/67
[2025-07-05] MEDS ORDERED: WARFARIN SOD 5 MG TAB PO SCH (16:00)
== END 2025-07-05 16:31 | disposition home or self-care (01) | DRG 292 ==
LOC: ED 19:20 → 2S 19:20 → SUATTDRO 07-03 14:39